=== PATIENT | male | born 1955 | race Caucasian/White ===

== ENCOUNTER 2021-07-20 04:08 | Inpatient (IN) | payer OTHER ==
[~2021-07-20] VITALS: Ht 177.8 cm; Wt 61.5 kg
[~2021-07-20 04:08] MED LIST: ATENOLOL25 MG PO; FINA5; Flecainide Acet50 MG; HYDROCODONE-AC1 EAC7 PO; Hytrin2 MG PO; JANTOVEN2.5 M2 PO; NEURONTIN300 MG PO; Norco 5-325 Ta1 EACH PO; ONDA4 PO; PANTOPRAZOLE SO40 M2 PO; PRAVASTATIN SOD20 MG PO; SOMA350 M4 PO
[2021-07-20 05:23] LABS: BASOPHILS ABSOLUTE AUTO 0.04 K/mm3 (0.00-0.23); BASOPHILS PERCENT AUTO 0 % (0-2); EOSINOPHILS ABSOLUTE AUTO 0.14 K/mm3 (0.00-0.68); EOSINOPHILS PERCENT AUTO 2 % (0-6); Hemoglobin 10.1 g/dL (13.5-17.5); IMMATURE GRAN ABSOLUTE AUTO 0.03 K/mm3 (0.00-0.10); IMMATURE GRAN PERCENT AUTO 0 % (0-1); LYMPHOCYTES ABSOLUTE AUTO 1.26 K/mm3 (0.84-5.20); LYMPHOCYTES PERCENT AUTO 14 % (21-46); MONOCYTES ABSOLUTE AUTO 0.82 K/mm3 (0.16-1.47); MONOCYTES PERCENT AUTO 9 % (4-13); Mean Corpuscular HGB 27.8 pg (26.0-34.0); Mean Corpuscular HGB Conc 31.6 g/dL (31.5-36.5); Mean Corpuscular Volume 88 fL (80-100); Mean Platelet Volume 8.8 fL (9.1-12.4); NEUTROPHILS ABSOLUTE AUTO 6.86 K/mm3 (1.96-9.15); NEUTROPHILS PERCENT AUTO 75 % (41-73); Platelet Count 260 K/mm3 (150-400); RDW Coefficient Variation 18.5 % (11.7-14.2); RDW Standard Deviation 59.9 fL (35.1-46.3); Red Blood Cell Count 3.63 M/mm3 (4.30-5.90); White Blood Cell Count 9.15 K/mm3 (4.00-11.30)
[2021-07-20] MEDS ORDERED: AMOCLA875 PO (06:02)
[2021-07-20 07:41] LABS: International Normalized Ratio 2.55; Prothrombin Time Results 25.2 Sec (9.7-11.5)
[2021-07-20 08:51] LABS: Alanine Aminotransfer (ALT/SGP 22 U/L (12-78); Albumin, Blood 3.1 g/dL (3.4-5.0); Albumin/Globulin Ratio 1.2 (0.8-1.8); Alk Phos 51 U/L (50-136); Anion Gap 5 mmol/L (6-16); Aspartate Aminotrans (AST/SGOT 22 U/L (12-37); Bilirubin, Total 0.2 mg/dL (0.1-1.0); Blood Urea Nitrogen 26 mg/dL (8-24); Bun/Creatinine Ratio 50.7 (12.0-20.0); CO2, Blood 23 mmol/L (21-32); Calcium, Blood 7.5 mg/dL (8.5-10.1); Chloride, Blood 114 mmol/L (98-108); Creatinine, Blood 0.51 mg/dL (0.60-1.20); Globulin, Blood 2.6 g/dL (2.2-4.0); Glomerular Filtration Rate >60 (60-); Glucose, Blood 151 mg/dL (70-99); Potassium, Blood 3.9 mmol/L (3.5-5.5); Sodium, Blood 142 mmol/L (136-145); Total Protein, Blood 5.7 g/dL (6.4-8.2)
--- NOTE | 2021-07-20 10:00 | NUR ---
PT ARRIVED FROM ER, CLOTHING REMOVED. RIB BUILDER & I HAD HUNG #3 OF FFP, THEN STRED #4 ON ARRIVAL FROM ER. AFTER PT WENT TO OR, RN CALLED TO LET PT'S KNOW AN UPDATE OF GOING TO THE OR. RAPID COVID DONE IN UNIT, NEG. HAD 18G ON L FA, 20G IN R WRIST.
--- NOTE | 2021-07-20 12:32 | NUR ---
ARRIVAL TO UNIT PT ARRIVED TO UNIT POST SURGICAL PROCEDURE FOR NOSE BLEED, RN KAUR [place] HANDED PATIENT OFF TO THIS STUDENT. PT ALERT AND ORIENTED X4. NOSE HAS DRIED BLOOD WITH NO DAVID BLOOD NOTED. PT STATES HE IS SLEEPY, VITALS TAKEN WITH TEMP OF 101.3 NOTED. PT WRAPPED IN WARM BLANKETS AND HAD BEAR HUGGER DURING PROCEDURE. WILL REASSESS. CALL LIGHT IN REACH, DENIES PAIN, ICE WATER GIVEN.
[2021-07-20 13:40] LABS: Hematocrit 18.7 % (37.0-53.0)
[2021-07-20 13:52] LABS: International Normalized Ratio 1.65
[2021-07-20 14:00] LABS: Hemoglobin 5.9 g/dL (13.5-17.5)
[2021-07-20 14:02] LABS: Prothrombin Time Results 16.8 Sec (9.7-11.5)
--- NOTE | 2021-07-20 14:04 | NUR ---
PT APPEARS PALE AND REPORTS FEELING WEAK AND SICK. HE REMAINS ORIENTED X4 AND ANSWERS QUESTIONS APPROPRIATLY. LAB CALLED WITH CRITICAL VALUE WHILE CALLING HOSPITALIST. HGB OF 5.9. NOTIFIED HOSPITALIST BLANHCE, ORDERS RECIEVED FOR 2 UNITCS PRBC TRANSFUSE NOW.
[2021-07-20 14:26] LABS: Source, Urine Clean Catch
[2021-07-20 14:41] LABS: Influenza A, PCR NEGATIVE (NEGATIVE); Influenza B, PCR NEGATIVE (NEGATIVE); Resp Syncytial Virus, PCR NEGATIVE (NEGATIVE); SARS-Cov-2 (COVID-19) PCR, MMC NEGATIVE (NEGATIVE)
--- NOTE | 2021-07-20 14:49 | NUR ---
TRANFUSION TRANSFUSION STARTED AT 1445. PT IS LAYING IN BED, REMAINS PALE AND REPORTS FEELING WEAK. HE ASKS FOR ICE WATER. PER HOSPITALIST BLANCHE IF NO SIGNS OF TRANSFUSION REACTION AFTER 15 MINUTES HE WANTS THE UNIT RAN OVER 1 HOUR. WILL ADMINISTER BLOOD AND CONTINUE TO MONITOR FOR ADVERSE EFFECTS.
[2021-07-20 14:51] LABS: Bilirubin, Urine Neg (Neg); Blood, Urine 5+ (Neg); Glucose Qualitative, Urine Neg (Neg); Ketones, Urine 2+ (Neg); Leukocyte Esterase, Urine 1+ (Neg); Nitrite, Urine Neg (Neg); Protein, Urine 2+ (Neg); Specific Gravity, Urine 1.005 (1.003-1.022); Urobilinogen, Urine NORM (Normal)
[2021-07-20 15:00] LABS: Appearance, Urine Hazy (Clear); Color, Urine Pale Yellow (P-Yellow)
[2021-07-20 15:01] LABS: Red Blood Cells, Urine 25-50 /hpf (0-2)
[2021-07-20 15:02] LABS: Bacteria Rare /hpf; Squamous Epithelial Cells Rare /hpf (Few)
--- NOTE | 2021-07-20 15:04 | NUR ---
pt tolerating first 15 minutes of transfusion well, denies any new pain or shortness of breath. rate increased per provider. pt has call light in reach, he is aware of need to call if any signs of transfusion reaction begin. currently resting in bed, continues to complain of weakness and feeling "bad"
--- NOTE | 2021-07-20 16:44 | NUR ---
pt tolerated first unit of prbc, he appears more alert and engaged with staff. he reports feeling better at this time. he is less pale than before.
--- NOTE | 2021-07-20 18:37 | NUR ---
SHIFT SUMMARY PT CURRENTLY RECIEVING SECOND UNIT PRBC, NO S/S OF TRANSFUSION REACTION. TOLERATING WELL. PT REPORTS FEELING BETTER SINCE START OF TRANSFUSION. CHEST X RAY FOR PNEUMOTHORAX DONE. PT DENIES SHORTNESS OF BREATH, LUNG SOUNDS COARSE, WHEEZY AND HAS A RUB WHEN LAYING DOWN. CLEAR WHEN SITTING STRAIGHT UP. ABLE TO TRANSFER TO BSC WITH MINIMAL ASSIST. SMALL AMOUNT DRIED BLOOD AROUND NOSE, OTHERWISE SKIN UNREMARKABLE. TOLERATING PO WELL, MEDICATED FOR PAIN IN BACK PER EMAR.
[2021-07-20 19:56] LABS: Hematocrit 24.9 % (37.0-53.0); Hemoglobin 8.1 g/dL (13.5-17.5)
[2021-07-21 04:02] LABS: Hematocrit 23.7 % (37.0-53.0); Hemoglobin 7.5 g/dL (13.5-17.5)
[2021-07-21 04:16] LABS: International Normalized Ratio 1.89
--- NOTE | 2021-07-21 05:33 | NUR ---
PATIENTS HEART RATE INCREASED IN THE 150'S. WHEEZING THROUGHOUT LUNGS. PATIENT COUGHING UP SMALL AMOUNTS OF BLOOD TINGED SPUTUMN. CURRENTLY ON HEPARIN DRIP. HGB DECREASE FROM 8.[address] GOODWIN, RECEIVED ORDERS FOR METOPROLOL SMG IV, LASIX 40MG IV, STOP FLUIDS. PER TELE PATIENT SINUS TACH. MEDICATED FOR BACK PAIN, PATIENT STATES HE HAS CHRONIC BACK PAIN. CURRENTLY RESTING, SAFETY MAINTAINED.
[2021-07-21 09:43] LABS: Hemoglobin 6.4 g/dL (13.5-17.5)
[2021-07-21 09:44] LABS: Mean Platelet Volume 9.4 fL (9.1-12.4); Platelet Count 162 K/mm3 (150-400)
--- NOTE | 2021-07-21 10:53 | NUR ---
0930 HGB DRAW IS 6.4, DR. WISEMAN NOTIFIED, SEE NEW ORDERS FOR 2 UNITS RBC'S. NO CHANGE IN PT STATUS
--- NOTE | 2021-07-21 11:07 | NUR ---
07/21/21 1107 Joe Yoo 30 cc of 1:1000 lido with epi on cottonoids for topical application
--- NOTE | 2021-07-21 12:54 | NUR ---
HEPARIN DRIP STOPPED AT THIS TIME PER ORDER
--- NOTE | 2021-07-21 15:16 | NUR ---
1ST UNIT OF RBC'S NOW TRANSFUSED. PT TOLERATED WELL, PLAN TO START 2ND SOON.
--- NOTE | 2021-07-21 17:03 | NUR ---
SUMMARY: NO ACUTE CHANGE TODAY. VSS, TELE WNL, A/O, PT USING CALL LIGHT. SBA WHEN AMBULATING. NO BLEEDING NOTED TODAY, NO EMESIS. 2 UNIT OF BLOOD TRANSFUSING NOW, LUNGS ARE CLEAR. NO COMPLAINT OF SOB. H&H TO BE DRAWN AFTER TRANSFUSING. PT HAS DENIED DIZZINESS. MEDICATED FOR CHRONIC BACK PAIN WITH 1 NARCO Q6. PT TO RECEIVED PO WARFARIN TONIGHT. NO SAFETY CONCERNS, WILL CTM AND REPORT TO JULES HOANG.
[2021-07-21 20:55] LABS: Hematocrit 24.7 % (37.0-53.0); Hemoglobin 8.1 g/dL (13.5-17.5)
[2021-07-22 01:12] LABS: Hematocrit 23.6 % (37.0-53.0); Hemoglobin 7.8 g/dL (13.5-17.5)
[2021-07-22 01:26] LABS: International Normalized Ratio 2.28; Prothrombin Time Results 22.7 Sec (9.7-11.5)
--- NOTE | 2021-07-22 06:41 | NUR ---
SHIFT SUMMARY: PT IN BED AAXO4. BLOOD PRODUCT FINISH FLUSH GIVEN. VS WNL WITH NO SIGNS OF DISTRESS NOTED. KILN LOADER IN PLACE MACHINING ASSOCIATE REPORTS SR IN THE 80'S. SOME PRODUCTIVE COUGH PRESENT WITH YELLOW SECREATIONS. PULSE OX IN PLACE O2 SAT @96%. UP TO BATHROOM SOFT STOOL PRESENT. COMPLAINS OF BACK PAIN MEDICATED PER EMAR.
[2021-07-22 07:40] LABS: Hematocrit 23.4 % (37.0-53.0); Hemoglobin 7.7 g/dL (13.5-17.5)
--- NOTE | 2021-07-22 13:09 | NUR ---
PT. DISCHARGED AT 1300 TO HOME. DC INSTRUCTIONS EXPLAINED, PT. VERBALIZE UNDERSTANDING. NASAL DECONGESTANT ORDERED, INR PRESCRIPTION SENT. PERSONAL BELONGINGS AND DC INSTRUCTIONS SENT WITH PT. DENIES PAIN, VOICES NO COMPLAINTS. W/C TO EXIT.
== END 2021-07-22 13:05 | disposition home or self-care (01) | DRG 151 ==
LOC: ER 04:08 → SURS 04:09
PROVIDERS: Emergency Medicine; Internal Medicine; Nurse Practitioner Acute Care; Pharmacist; Student in an Organized Health Care Education/Training Program; ADMIT Otolaryngology
PROC: 30233N1 Transfusion of Nonautologous Red Blood Cells into Peripheral Vein, Percutaneous Approach (ICD-10-PCS; principal; 2021-07-21)
PROC: 30233K1 Transfusion of Nonautologous Frozen Plasma into Peripheral Vein, Percutaneous Approach (ICD-10-PCS; 2021-07-21)
PROC: 093K8ZZ Control Bleeding in Nasal Mucosa and Soft Tissue, Via Natural or Artificial Opening Endoscopic (ICD-10-PCS; 2021-07-21)
PROC: 2Y41X5Z Packing of Nasal Region using Packing Material (ICD-10-PCS; 2021-07-21)
DX: R04.0 Epistaxis (principal); I48.20 Chronic atrial fibrillation, unspecified; D62 Acute posthemorrhagic anemia; R64 Cachexia; Z68.1 Body mass index [BMI] 19.9 or less, adult; Z53.29 Procedure and treatment not carried out because of patient's decision for other reasons; Z20.822 Contact with and (suspected) exposure to COVID-19; F17.200 Nicotine dependence, unspecified, uncomplicated; T45.515A Adverse effect of anticoagulants, initial encounter; J44.9 Chronic obstructive pulmonary disease, unspecified; N40.0 Benign prostatic hyperplasia without lower urinary tract symptoms; I48.0 Paroxysmal atrial fibrillation; Z95.2 Presence of prosthetic heart valve; Z79.01 Long term (current) use of anticoagulants; Z79.899 Other long term (current) drug therapy
CPT/HCPCS: 0241U; 30903; 36415; 36430; 71045; 80053; 81001; 83880; 85014; 85018; 85025; 85049; 85610; 85730; 86850; 86900; 86901; 86923; 87086; 93005; 93010; 94640; 94762; 96372; 96374-59; 96375; 96375-59; 96376; 99285-25; A9270; G0378; J0171; J0780; J1100; J1644; J1940; J2250; J2370; J2405; J2550; J2704; J2765; J3010; J7030; J7050; J7120; P9016; P9059

== ENCOUNTER 2021-09-09 08:23 | Emergency (ER) | payer OTHER ==
[~2021-09-09] VITALS: Ht 177.8 cm; Wt 59.0 kg
[~2021-09-09 08:23] MED LIST changes: +AMOCLA875 PO
[2021-09-09 09:43] LABS: BASOPHILS ABSOLUTE AUTO 0.04 K/mm3 (0.00-0.23); BASOPHILS PERCENT AUTO 1 % (0-2); EOSINOPHILS PERCENT AUTO 2 % (0-6); Hematocrit 37.1 % (37.0-53.0); Hemoglobin 11.6 g/dL (13.5-17.5); IMMATURE GRAN ABSOLUTE AUTO 0.02 K/mm3 (0.00-0.10); IMMATURE GRAN PERCENT AUTO 0 % (0-1); LYMPHOCYTES ABSOLUTE AUTO 0.71 K/mm3 (0.84-5.20); LYMPHOCYTES PERCENT AUTO 11 % (21-46); MONOCYTES ABSOLUTE AUTO 0.56 K/mm3 (0.16-1.47); MONOCYTES PERCENT AUTO 8 % (4-13); Mean Corpuscular HGB 28.5 pg (26.0-34.0); Mean Corpuscular HGB Conc 31.3 g/dL (31.5-36.5); Mean Corpuscular Volume 91 fL (80-100); Mean Platelet Volume 9.4 fL (9.1-12.4); NEUTROPHILS ABSOLUTE AUTO 5.23 K/mm3 (1.96-9.15); NEUTROPHILS PERCENT AUTO 79 % (41-73); Platelet Count 259 K/mm3 (150-400); RDW Coefficient Variation 18.8 % (11.7-14.2); Red Blood Cell Count 4.07 M/mm3 (4.30-5.90); White Blood Cell Count 6.66 K/mm3 (4.00-11.30)
[2021-09-09 09:57] LABS: International Normalized Ratio 2.25; Prothrombin Time Results 22.4 Sec (9.7-11.5)
== END 2021-09-09 12:53 | disposition home or self-care (01) ==
LOC: ER 08:23
PROVIDERS: Emergency Medicine
DX: R04.0 Epistaxis (principal); I48.0 Paroxysmal atrial fibrillation; J44.9 Chronic obstructive pulmonary disease, unspecified; F17.200 Nicotine dependence, unspecified, uncomplicated; Z79.899 Other long term (current) drug therapy; Z79.891 Long term (current) use of opiate analgesic; Z79.01 Long term (current) use of anticoagulants
CPT/HCPCS: 30901; 36415; 85025; 85610; 99283-25; A9270

== ENCOUNTER 2021-09-10 16:09 | Emergency (ER) | payer OTHER ==
[~2021-09-10] VITALS: Ht 177.8 cm; Wt 59.0 kg
[2021-09-10 18:53] LABS: International Normalized Ratio 1.71; Prothrombin Time Results 17.3 Sec (9.7-11.5)
[2021-09-10 19:00] LABS: BASOPHILS ABSOLUTE AUTO 0.03 K/mm3 (0.00-0.23); BASOPHILS PERCENT AUTO 0 % (0-2); EOSINOPHILS ABSOLUTE AUTO 0.03 K/mm3 (0.00-0.68); EOSINOPHILS PERCENT AUTO 0 % (0-6); Hematocrit 34.8 % (37.0-53.0); Hemoglobin 10.9 g/dL (13.5-17.5); IMMATURE GRAN ABSOLUTE AUTO 0.05 K/mm3 (0.00-0.10); IMMATURE GRAN PERCENT AUTO 0 % (0-1); LYMPHOCYTES ABSOLUTE AUTO 0.53 K/mm3 (0.84-5.20); LYMPHOCYTES PERCENT AUTO 5 % (21-46); MONOCYTES ABSOLUTE AUTO 0.72 K/mm3 (0.16-1.47); MONOCYTES PERCENT AUTO 6 % (4-13); Mean Corpuscular HGB 28.8 pg (26.0-34.0); Mean Corpuscular HGB Conc 31.3 g/dL (31.5-36.5); Mean Corpuscular Volume 92 fL (80-100); Mean Platelet Volume 9.2 fL (9.1-12.4); NEUTROPHILS ABSOLUTE AUTO 10.34 K/mm3 (1.96-9.15); NEUTROPHILS PERCENT AUTO 88 % (41-73); Platelet Count 252 K/mm3 (150-400); RDW Coefficient Variation 18.9 % (11.7-14.2); RDW Standard Deviation 63.7 fL (35.1-46.3); Red Blood Cell Count 3.79 M/mm3 (4.30-5.90)
== END 2021-09-10 19:26 | disposition home or self-care (01) ==
LOC: ER 16:09
PROVIDERS: Student in an Organized Health Care Education/Training Program
DX: R04.0 Epistaxis (principal); Z79.899 Other long term (current) drug therapy; Z79.891 Long term (current) use of opiate analgesic; Z79.01 Long term (current) use of anticoagulants; F17.210 Nicotine dependence, cigarettes, uncomplicated
CPT/HCPCS: 30903; 36415; 85025; 85610; 99283-25; A9270

== ENCOUNTER 2023-01-23 11:02 | Inpatient (IN) | payer OTHER ==
[~2023-01-23] VITALS: Ht 175.3 cm; Wt 53.2 kg
[2023-01-23] VITALS (8 sets, daily range): BP systolic 142–174; BP diastolic 82–111
[2023-01-23 11:45] LABS: BASOPHILS ABSOLUTE AUTO 0.04 K/mm3 (0.00-0.23); BASOPHILS PERCENT AUTO 0 % (0-2); EOSINOPHILS ABSOLUTE AUTO 0.01 K/mm3 (0.00-0.68); EOSINOPHILS PERCENT AUTO 0 % (0-6); Hematocrit 33.1 % (37.0-53.0); Hemoglobin 10.9 g/dL (13.5-17.5); IMMATURE GRAN PERCENT AUTO 1 % (0-1); LYMPHOCYTES ABSOLUTE AUTO 0.41 K/mm3 (0.84-5.20); LYMPHOCYTES PERCENT AUTO 2 % (21-46); MONOCYTES ABSOLUTE AUTO 1.63 K/mm3 (0.16-1.47); MONOCYTES PERCENT AUTO 8 % (4-13); Mean Corpuscular HGB 27.7 pg (26.0-34.0); Mean Corpuscular HGB Conc 32.9 g/dL (31.5-36.5); Mean Corpuscular Volume 84 fL (80-100); NEUTROPHILS PERCENT AUTO 88 % (41-73); RDW Coefficient Variation 19.9 % (11.7-14.2); RDW Standard Deviation 60.7 fL (35.1-46.3); Red Blood Cell Count 3.94 M/mm3 (4.30-5.90); White Blood Cell Count 19.79 K/mm3 (4.00-11.30)
[2023-01-23 11:50] LABS: Calcium, Ionized (POC) 1.15 mmol/L (1.10-1.46); Chloride (POC) 105 mmol/L (98-108); Creatinine (POC) 0.5 mg/dL (0.8-1.3); Glucose (ISTAT POC) 157 mg/dL (70-99); Hemoglobin (POC) 12.2 g/dL (13.5-17.5); Potassium (POC) 3.6 mmol/L (3.5-5.5); Sodium (POC) 138 mmol/L (135-148); Total CO2 (POC) 20 mmol/L (21-32)
[2023-01-23 12:07] LABS: BASOPHILS PERCENT MAN 0 % (0-2); EOSINOPHILS PERCENT MAN 0 % (0-6); LYMPHOCYTES ABSOLUTE MAN 0.59 K/mm3 (0.84-5.20); LYMPHOCYTES PERCENT MAN 3 % (21-46); MONOCYTES ABSOLUTE MAN 0.98 K/mm3 (0.16-1.47); MONOCYTES PERCENT MAN 5 % (4-13); SEG NEUTROPHILS PERCENT MAN 92 % (41-73); TOTAL CELLS COUNTED 100
[2023-01-23 12:13] LABS: Platelet Count 248 K/mm3 (150-400)
[2023-01-23 12:13] LABS: International Normalized Ratio 2.27; Prothrombin Time Results 22.8 Sec (9.7-11.5)
[2023-01-23 12:19] LABS: Albumin, Blood 3.9 g/dL (3.4-5.0); Albumin/Globulin Ratio 1.2 (0.8-1.8); Bilirubin, Total 0.8 mg/dL (0.1-1.0); Bun/Creatinine Ratio 29.7 (12.0-20.0); Creatinine, Blood 0.57 mg/dL (0.60-1.20); Globulin, Blood 3.3 g/dL (2.2-4.0); Total Protein, Blood 7.2 g/dL (6.4-8.2)
[2023-01-23 13:06] LABS: Source, Urine Clean Catch
[2023-01-23 13:25] LABS: Potassium, Blood 3.8 mmol/L (3.5-5.5)
[2023-01-23 13:35] LABS: Appearance, Urine Bloody (Clear); Bilirubin, Urine Neg (Neg); Blood, Urine 5+ (Neg); Color, Urine Brown (P-Yellow); Glucose Qualitative, Urine 1+ (Neg); Ketones, Urine 2+ (Neg); Leukocyte Esterase, Urine 1+ (Neg); Nitrite, Urine Pos (Neg); Protein, Urine 3+ (Neg); Urobilinogen, Urine NORM (Normal)
[2023-01-23 13:50] LABS: Red Blood Cells, Urine TNTC /hpf (0-2)
[2023-01-23 13:53] LABS: Bacteria Many /hpf; Calcium Oxalate Crystals Few /hpf; Hyaline Casts 0-2 /lpf (0-2); Squamous Epithelial Cells Rare /hpf (Few)
[2023-01-23 13:56] LABS: U Amphetamine Screen Not Detected; U Barbituate Screen Not Detected; U Benzodiazapine Screen Not Detected; U Buprenorphine Screen Not Detected; U Cannabinoids Screen DETECTED; U Cocaine Screen Not Detected; U Methadone Screen Not Detected; U Methamphetamine Screen Not Detected; U Opiates Screen Not Detected; U Oxycodone Screen DETECTED; U Phencyclidine Screen Not Detected; U Propoxyphene Screen Not Detected
--- NOTE | 2023-01-23 19:39 | NUR ---
PT UPDATE PT ARRIVED TO PCU7 FROM ER APPROX 1720. PT SOMNELENT, ONLY RESPONSIVE TO PHYSICAL STIMULI. HR 110'S-130'S, BP 174/111. SPO2 >95% ON RA, DYSPNEA WITH MOVEMENT. RR 28. BILATERAL IV'S SALINE LOCKED. CONDOM CATH PLACED DRAINING TEA COLORED URINE. APPROX 0710 PT WITH SPO2 77%, SATS IMPROVED WITHIN 30 SECONDS. RECTAL TEMP PROBE PLACED, TEMP 101.4. ICE BAGS APPLIED TO PT. BILATERAL NYSTAGMUS NOTED, PUPILS EQUAL AND RESPONSIVE TO LIGHT. PT RESPONSIVE TO STERNAL RUB, UNABLE TO FOLLOW ANY COMMANDS. CALL PLACED TO MD HARGROVE. MD HARGROVE WITH UPDATED ORDERS. STAT CT COMPLETED. BEDSIDE REPORT GIVE TO ONCOMING RN.
[2023-01-23 19:56] LABS: PCO2 Arterial 24.3 mmHg (35-45); PO2 Arterial 67.3 mmHg (80-100)
[2023-01-23 20:56] LABS: Hematocrit 33.8 % (37.0-53.0); Hemoglobin 11.2 g/dL (13.5-17.5)
[2023-01-23 21:09] LABS: C-REACTIVE PROTEIN, EXT RANGE 4.49 mg/dL (0.000-0.300)
[2023-01-23 22:24] LABS: Source, Urine Clean Catch
--- NOTE | 2023-01-23 22:25 | NUR ---
PATIENT UPDATE/ASSUMPTION OF CARE THIS RN ASSUMED CARE OF PATIENT AT 1930. PT BACK FROM HEAD CT WITH PRIOR RN. BEDSIDE REPORT TAKEN. PREVIOUS RN UPDATED OF PT VIA PHONE. PT CONTINUES TO BE SOMNOLENT AND NOT ANSWERING QUESTIONS OR FOLLOWING COMMANDS. IT WAS REPORTED BY PREVIOUS RN OF POSSIBLE SEIZURE-LIKE ACTIVITY PRIOR TO PT DEVELOPING NYSTAGMUS. AFTER THIS RN TOOK OVER CARE PT BECAME MORE AWAKE AND BEGAN PULLING AT LINES SO SOFT BILATERAL WRIST RESTRAINTS WERE PLACED BACK ON PT. BLADDER SCAN SHOWING >800MLS OF URINE IN BLADDER. CALL PLACED TO PROVIDER AND ORDER RECIEVED FOR HERNANDEZ CATHETER. URINE CONTINUES TO BE RED. ST ON MONITOR WITH HR 120-130'S. SBP 140-150'S. RECTAL PROBE PLACED D/T TEMP OF >101.0. CURRENTLY DOWN TO 100.4 AFTER RECTAL TYLENOL. PLACED ON 3L VIA NC D/T ABG SHOWING HYPOXIA. PT CONTINUES TO HAVE RESPIRATIONS OF 26-30. PUPILS REACTIVE TO LIGHT; NO NYSTAGMUS NOTED AT THIS TIME. NOT FOLLOWING COMMANDS. HYPOACTIVE BOWEL SOUNDS NOTED. PPP. PLAN TO TRANSFER TO ICU FOR PRECEDEX AND CT TO BE REDONE. THIS RN WILL REPORT TO PRINTED CIRCUIT DESIGNERVIKTOR ASH. BED IN LOWEST POSITION AND CALL LIGHT WITHIN REACH
[2023-01-23 22:27] LABS: Appearance, Urine Cloudy (Clear); Bilirubin, Urine Neg (Neg); Blood, Urine 5+ (Neg); Color, Urine Brown (P-Yellow); Glucose Qualitative, Urine Neg (Neg); Ketones, Urine 1+ (Neg); Leukocyte Esterase, Urine 1+ (Neg); Nitrite, Urine Neg (Neg); Protein, Urine 3+ (Neg); Specific Gravity, Urine 1.015 (1.003-1.022); Urobilinogen, Urine NORM (Normal)
[2023-01-23 23:01] LABS: Bacteria Mod /hpf; Red Blood Cells, Urine 50-100 /hpf (0-2); Squamous Epithelial Cells Not Seen /hpf (Few); White Blood Cells, Urine 0-2 /hpf (0-5)
--- NOTE | 2023-01-23 23:34 | NUR ---
PT ARRIVES TO ICU 11 FROM PCU 7. PT CONFUSED, AND IS RESISTANT TO CARE. SOFT WRIST RESTRAINTS IN PLACE TO KEEP PT FROM PULLING AT LINES OR TUBES. PT NOT REDIRECTABLE. DOES NOT FOLLOW ANY COMMANDS. PUPILS SANDRA. STARTED PRECEDEX AT 0.2 MCG'S/KG. HAVE SINCE INCREASED TO 0.4 MCG'S. PT ON HEPARIN DRIP. ORDERS VERIFIED WITH VIKTOR SUAZO. HERNANDEZ CATHETER WITH HEMATURIA. UPON TRANSFER 900 ML HAD BEEN EMPTIED. RESPIRATORY PCR WITH COVID TEST DONE SECONDARY TO FEVER, RESPIRATORY CONGESTION, AND AMS. PENDING RESULTS. WILL PLACE PT IN RESPIRATORY ISOLATION UNTIL RESULTS RETURN.
[2023-01-24] VITALS (47 sets, daily range): BP systolic 91–174; BP diastolic 69–119
[2023-01-24 00:06] LABS: SARS-Cov-2 (COVID-19) PCR, MMC NEGATIVE (NEGATIVE)
--- NOTE | 2023-01-24 01:18 | NUR ---
PT GOES TO CT AND HAS RETURNED. DR BRUNER CONTACTED TO SEE RESULTS OF CT.
[2023-01-24 01:32] LABS: Anti-Xa UFH, PHA Monitoring 0.23 IU/mL
--- NOTE | 2023-01-24 02:37 | NUR ---
REPORT CALLED TO VIKTOR BERNARD. ALLOWED FOR QUESTIONS. PT TO BE TRANSFERRED BACK TO ICU 7
--- NOTE | 2023-01-24 03:31 | NUR ---
PATIENT UPDATE PATIENT TRANSFERRED BACK TO PCU 7 FROM ICU AT 0245. THIS RN NOTES WORSENING LUNG SOUNDS SINCE BEGINNING OF SHIFT. NS INFUSING AT 200MLS/HR. COARSE CRACKLES HEARD T/O. CALL PLACED TO MD BRUNER, ORDER TO STOP FLUIDS FOR NOW AND GET REPEAT CXR NOW. OTHERWISE PT WITH SR/ST ON MONITOR, HR 90-100'S AT REST. INCREASES TO 120'S WITH ACTIVITY. BP STABLE. TEMP 99.4 AT THIS TIME. PT NEURO NOTED TO HAVE IMPROVED. PT CONTINUES TO PULL AT LINES BUT IS NOW FOLLOWING SIMPLE COMMANDS AND IS NODDING YES/NO TO QUESTIONS. BILATERAL WRIST RESTRAINTS REMAIN IN PLACE FOR LINE SAFETY. HERNANDEZ CATHETER DRAINING TO GRAVITY; CONTINUES TO BE RED IN COLOR. BED IN LOWEST POSITION AND CALL LIGHT WITHIN REACH.
--- NOTE | 2023-01-24 05:35 | NUR ---
SHIFT SUMMARY SEE PREVIOUS NOTES REGARDING UPDATES AND CHANGES IN PT CONDITION. SINCE ARRIVAL BACK TO PCU PT HAS BEEN MORE ALERT, AND IS ABLE TO RESPOND VERBALLY TO QUESTIONS. PT HAS MUMBLED SPEECH BUT IS STATING SIMPLE PHRASES LIKE "I WANT TO GO BACK TO SLEEP", "I'M NOT IN PAIN". PT REMAINS CONFUSED AND PULLS AT LINES. PT ORIENTED TO SELF BUT DID NOT KNOW WHERE HE WAS OR WHAT DAY IT WAS. PT CONTINUES TO BE IN BILATERAL WRIST RESTRAINTS D/T CONFUSION AND PULLING AT LINES. ST WITH HR 90-100'S AT THIS TIME. ON 3L VIA NC WITH SPO2 >92%; RT ROSS TO BEDSIDE TO SUCTION PATIENT TO ASSIST IN CLEARING TAY SECRETIONS. BP STABLE WITH SBP 140'S AT THIS TIME. RECTAL PROBE REMAINS IN PLACE WITH TEMP 99.9 AT THIS TIME. REPOSITIONING Q2HRS. BED IN LOWEST POSITION AND CALL LIGHT WITHIN REACH. THIS RN WILL REPORT TO ONCOMING RN.
[2023-01-24 06:19] LABS: BASOPHILS ABSOLUTE AUTO 0.01 K/mm3 (0.00-0.23); BASOPHILS PERCENT AUTO 0 % (0-2); EOSINOPHILS PERCENT AUTO 0 % (0-6); Hematocrit 28.3 % (37.0-53.0); Hemoglobin 9.4 g/dL (13.5-17.5); IMMATURE GRAN ABSOLUTE AUTO 0.07 K/mm3 (0.00-0.10); IMMATURE GRAN PERCENT AUTO 1 % (0-1); LYMPHOCYTES ABSOLUTE AUTO 0.36 K/mm3 (0.84-5.20); LYMPHOCYTES PERCENT AUTO 3 % (21-46); MONOCYTES ABSOLUTE AUTO 1.19 K/mm3 (0.16-1.47); MONOCYTES PERCENT AUTO 8 % (4-13); Mean Corpuscular HGB 28.6 pg (26.0-34.0); Mean Corpuscular HGB Conc 33.2 g/dL (31.5-36.5); Mean Corpuscular Volume 86 fL (80-100); Mean Platelet Volume 9.6 fL (9.1-12.4); NEUTROPHILS ABSOLUTE AUTO 12.84 K/mm3 (1.96-9.15); NEUTROPHILS PERCENT AUTO 89 % (41-73); Platelet Count 208 K/mm3 (150-400); RDW Standard Deviation 65.4 fL (35.1-46.3); Red Blood Cell Count 3.29 M/mm3 (4.30-5.90); White Blood Cell Count 14.47 K/mm3 (4.00-11.30)
--- NOTE | 2023-01-24 07:28 | NUR ---
ASSUMPTION OF CARE ASSUMED CARE OF PT APPROX 0715. PT AWAKE IN BED, NOTICEABLY DYSPNEIC. PT ABLE TO NOD HEAD TO ANSWER SOME QUESTIONS. UNABLE TO FOLLOW MOST COMMANDS. RR 32. SPO2 >92% ON 3L NC, PT POSITIONED IN HIGH FOWLERS. HR 110'S-120'S, BP STABLE. HERNANDEZ CATHETER IN PLACE DRAINING DARK RED URINE TO GRAVITY. PT ATTEMPTING TO PULL HERNANDEZ CATH, REPOSITIONED WITH PILLOWS. SOFT WRIST RESTRAINTS IN PLACE, PULSES PALPABLE. HEPARIN GTT INFUSING PER EMAR. CALL LIGHT WITHIN PT'S REACH, BED ALARM ON.
--- NOTE | 2023-01-24 08:16 | NUR ---
PT UPDATE SOFT WRIST RESTRAINTS REMOVED AT 0815. RT TO BEDSIDE. BIPAP PLACED, 1:1 SITTER PRESENT IN PT ROOM.
[2023-01-24 08:23] LABS: Albumin, Blood 3.2 g/dL (3.4-5.0); Bilirubin, Total 0.4 mg/dL (0.1-1.0); Bun/Creatinine Ratio 45.3 (12.0-20.0); Calcium, Blood 8.3 mg/dL (8.5-10.1); Creatinine, Blood 0.57 mg/dL (0.60-1.20); Globulin, Blood 3.1 g/dL (2.2-4.0); Potassium, Blood 3.6 mmol/L (3.5-5.5); Total Protein, Blood 6.3 g/dL (6.4-8.2)
[2023-01-24] MEDS ORDERED: OXYC5 PO (09:17)
[2023-01-24] MEDS ORDERED: Ventolin/Prove6.7 GM INH (09:17)
[2023-01-24] MEDS ORDERED: TIOT18 INH (09:18)
[2023-01-24] MEDS ORDERED: PANT40 PO (09:18)
--- NOTE | 2023-01-24 09:31 | NUR ---
PT TRANSFER: PT TRANSFERRED TO ICU11 AT 0845. REPORT GIVEN TO AIMEE HOANG. PT TRANSPORTED ON BIPAP.
--- NOTE | 2023-01-24 11:09 | NUR ---
TRANSFER TO ICU PT ARRIVES TO ICU AT 0845 FOR INCREASED WOB. REPORT FROM SEDRICK HOANG. PT ARRIVES ON BIPAP 05/07/%. RR 25-35. ACCESSORY MUSCLES USED, LABORED BREATHING. PT ANXIOUS AND AGITATED. PULLING ON LINES. SOFT WRIST RESTRAINTS TO PROTECT LINES AND TUBES. PT DIFFICULT TO UNDERSTAND. MOANING. ABLE TO UNDERSTAND OCCASIONAL NEEDS (BACK PAIN, REQUESTS FOR WATER). PT DIFFICULT TO REDIRECT. DOES NOT FOLLOW COMMANDS. CURRENTLY ON NRB AT 15L. LUNGS COARSE, AUDIBLE SECRETIONS, ENCOURAGED COUGH, WEAK. UNABLE TO CLEAR SECRETIONS. PLAN FOR NT SUCTIONING. ST ON MONITOR, RATE 100-140'S. BP STABLE. HEPARIN GTT INFUSING. STARTED PRECEDEX GTT FOR AGITATION AND SO PT CAN TOLERATE NT SUCTIONING. HERNANDEZ PATENT, DRAINING PINK URINE TO GRAVITY. DIURESED. PIV X 2. DR HOPSON CONSULTED AND ROUNDED. SO AT BEDSIDE. WILL CONTINUE TO MONITOR.
--- NOTE | 2023-01-24 17:06 | NUR ---
SHIFT SUMMARY PT MENTATION AND RESP STATUS IMPROVED SINCE ARRIVAL TO ICU. PT ORIENTED TO SELF, FAMILY, ANSWERS SOME QUESTIONS APPROPRIATELY, UNSURE OF YEAR. FOLLOWS SIMPLE DIRECTIONS, ABLE TO MAKE NEEDS KNOWN. CONTINUES TO BE INTERMITTANTLY IMPULSIVE AND PULLING ON LINES. SOFT BILATERAL WRIST RESTRAINTS IN PLACE, PRECEDEX GTT INFUSING. LUNGS CLEAR, DIM IN BASES AFTER NT SUCTIONING. YELLOW SECRETIONS SENT TO LAB. PT c WEAK COUGH. CURRENTLY ON AIRVO 45L/50%. TOLERATING WELL. RR MID 20'S. ACCESSORY MUSCLES AND OCCASIONAL LABORED BREATHING. HR VARIABLE, RATE 80-140'S, SR. BP STABLE. HERNANDEZ DRAINING DAVID RED URINE. DIURESED THIS SHIFT. ATTEMPTED MRI, [facility]NABLE TO PERFORM [facility]AN FOR CTA AT 1999. HEPARIN PLACED ON STANDBY AT 1146 D/T POSSIBLE HEMATOMA. UPDATED ON PLAN OF CARE. WILL CONTINUE TO MONITOR UNTIL REPORT TO ONCOMING NURSE.
--- NOTE | 2023-01-24 19:00 | NUR ---
ASSUMED CARE OF PT AT 1900 PT RESTING IN BED WHILE BEDSIDE REPORT GIVEN. NO FAMILY AT BEDSIDE. BUE IN SOFT RESTRAINTS AT THIS TIME. VITALS STABLE. PLEASE SEE FULL ASSESSMENT FOR FURTHER DETAILS.
--- NOTE | 2023-01-24 22:22 | NUR ---
DR HOPSON CALLED WITH CT RESULTS. REQUEST TO CALL PT SPOUSE BY . SPOUSE DHARA CALLED WITH RESULTS. RESULTS ALSO SENT TO [facility] IN [place] FOR CONSULT BY DR HOPSON.
[2023-01-25] VITALS (77 sets, daily range): BP systolic 93–174; BP diastolic 67–105
--- NOTE | 2023-01-25 01:57 | NUR ---
NICARDAPINE DRIP STARTED AT 0130.
--- NOTE | 2023-01-25 02:36 | NUR ---
PT DESATING TO 86-89% ON 45 LPM/50%. RT IN ROOM WITH THIS RN FOR NASO SUCTIONING. TAY STICKY SPUTUM OBTAINED WITH SPO2 RESULTING >93%.
[2023-01-25 03:47] LABS: BASOPHILS ABSOLUTE AUTO 0.02 K/mm3 (0.00-0.23); BASOPHILS PERCENT AUTO 0 % (0-2); EOSINOPHILS PERCENT AUTO 0 % (0-6); Hematocrit 28.9 % (37.0-53.0); Hemoglobin 9.2 g/dL (13.5-17.5); IMMATURE GRAN ABSOLUTE AUTO 0.07 K/mm3 (0.00-0.10); IMMATURE GRAN PERCENT AUTO 0 % (0-1); LYMPHOCYTES ABSOLUTE AUTO 0.48 K/mm3 (0.84-5.20); LYMPHOCYTES PERCENT AUTO 3 % (21-46); MONOCYTES ABSOLUTE AUTO 1.35 K/mm3 (0.16-1.47); MONOCYTES PERCENT AUTO 9 % (4-13); Mean Corpuscular HGB 27.8 pg (26.0-34.0); Mean Corpuscular HGB Conc 31.8 g/dL (31.5-36.5); Mean Corpuscular Volume 87 fL (80-100); Mean Platelet Volume 9.7 fL (9.1-12.4); NEUTROPHILS ABSOLUTE AUTO 13.93 K/mm3 (1.96-9.15); NEUTROPHILS PERCENT AUTO 88 % (41-73); Platelet Count 188 K/mm3 (150-400); RDW Coefficient Variation 20.6 % (11.7-14.2); RDW Standard Deviation 65.4 fL (35.1-46.3); Red Blood Cell Count 3.31 M/mm3 (4.30-5.90); White Blood Cell Count 15.85 K/mm3 (4.00-11.30)
[2023-01-25 04:03] LABS: International Normalized Ratio 2.82; Prothrombin Time Results 27.9 Sec (9.7-11.5)
[2023-01-25 04:07] LABS: Bun/Creatinine Ratio 52.6 (12.0-20.0); Calcium, Blood 8.3 mg/dL (8.5-10.1); Creatinine, Blood 0.63 mg/dL (0.60-1.20); Potassium, Blood 3.3 mmol/L (3.5-5.5)
--- NOTE | 2023-01-25 05:02 | NUR ---
LACTATED RINGERS STARTED PER AUG. NS STOPPED AT THIS TIME.
--- NOTE | 2023-01-25 06:15 | NUR ---
END OF SHIFT SUMMARY A/O X3-4. PT GETS AGITATED VERY EASILY WITH NPO STATUS. RESTRAINTS IN PLACE D/T PT PULLING AT LINES INCLUDING AIRVO TUBING AND SECUREMENT DEVICE. PT IS EASILY REDIRECTED, HOWEVER MAKES STATEMENT PERTAINING TO NOT WANTING CARE AND WANTS TO LEAVE THE FACILITY AND DISCONTINUE TREATMENT. PRECEDEX TREATMENT GIVEN PER EMAR. RESP- PT DESAT WITH SPUTUM BUILD UP DOWN TO 80'S WITH NO RECOVERY UNTIL SUCTIONED BY RT. QUICK RECOVERY NOTED. CARDIAC- SINUS TACH, PVC'S, SHORT PAUSES NOTED ON MONITOR THROUGHT THE NIGHT. THIS IS NO CHANGE TO DAY SHIFT FINDINGS ON PREVIOUS SHIFT. BLOOD PRESSURES TREATED PER EMAR WITH CALL TO FOR CARDIAC DRIP FOR BETTER CONTROL WITH ORDERS FOR PERAMETORS NOTED. SEE ORDERS FOR FURTHER DETAILS. GI,- NO BM THIS SHIFT. SCANT URINE IN CATH BAG. BLADDER SCAN DONE WITH 35 MLS NOTED. LR @ 150 MLS/HR PER DR HOPSON ORDERS. NO OTHER PERTINENT CHANGES TO NOTE AT THIS TIME. WILL CONTINUE TO MONITOR UNTIL REPORT IS GIVEN TO DAY RN.
--- NOTE | 2023-01-25 17:30 | NUR ---
SHIFT SUMMARY NO ACUTE CHANGES THIS SHIFT. PT HAS REMAINED ALERT AND ABLE TO FOLLOW DIRECTIONS WHILE AWAKE. PT FORGETFUL AT TIMES, NEEDING REORIENTATION TO SITUATION AND PLAN OF CARE. PT REMAINS IMPULSIVE AT TIMES. PRECEDEX INFUSING AT 0.6 MCG/KG/HR. VITAL SIGNS HAVE REMAINED STABLE. NICARDIPINE GTT INFUSING AT 2.5 MG/HR, NS TKO, AND D5 1/2 NS W KCL AT 150 ML/HR. PT REMAINS ON AIRVO AT 45L, FIO2 45%. PT WITH COARSE UPPER AIRWAY SOUNDS AND UNABLE TO CLEAR SECRETIONS WITH WEAK COUGH EFFORT. PT NT SUCTIONED PER RT WITH MINIMAL IMPROVEMENT WITH SECRETIONS. PT ABLE TO TOLERATE SIPS OF WATER WELL. HERNANDEZ REMAINS IN PLACE WITH DARK PINK COLORED URINE OUTPUT NOTED. RECTAL TEMP PROBE IN PLACE. PT REPORTS BEING UNABLE TO PURPOSFULLY MOVE BLE'S. PT DOES WITHDRAW BLE'S TO NOXIOUS STIMULI. DR ROQUE AWARE. PT SPOUSE AND OTHER FAMILY MEMBERS AT BEDSIDE THIS SHIFT. WILL CONTINUE TO MONITOR AND REPORT OFF TO ONCOMING RN.
--- NOTE | 2023-01-25 18:28 | NUR ---
RESPIRATORY DECLINE PT WITH ACUTE DESATURATION TO HIGH 70'S. PT ONLY ABLE TO INITIALLY RECOVER TO LOW 80'S WITH AIRVO AT 60L, FIO2 100%, AND FACE MASK AT 15L. PRECEDEX INCREASED TO 1.0 MCG/KG/HR AND PT MED WITH FENTANYL PER EMAR. DISCUSSED NEED FOR POTENTIAL INTUBATION WITH PT AND SPOUSE IF PT DOES NOT RECOVER. PT WITH SPO2 MID 80'S FOR 15 MINS. PT NOW WITH SPO2 > 98%. AIRVO AND TITRATED DOWN TO 50L, FIO2 80%, FACE MASK 9L. PT RESTING QUIETLY AT THIS TIME. WILL CONTINUE TO MONITOR.
--- NOTE | 2023-01-25 19:20 | NUR ---
ASSUMED CARE OF PT AT 1900 PT AWAKE WITH SPOUSE DHARA AT BEDSIDE DURING SHIFT REPORT. NICARDIPINE 2.5 MG/HR PRCEDEX @ 1.0 50/80% AIRVO AT THIS TIME. VITALS WNL FOR PATIENT AT THIS TIME. SEE FULL ASSESSMENT FOR FURTHER INFORATION.
--- NOTE | 2023-01-25 23:37 | NUR ---
CALLED HOSPITALIST D/T DAWSON, PAUSES, AND PVC'S . CHEM 8 AND MAG ORDERED STAT AT THIS TIME.
[2023-01-26] VITALS (29 sets, daily range): BP systolic 110–147; BP diastolic 69–96
[2023-01-26 00:18] LABS: Bun/Creatinine Ratio 34.6 (12.0-20.0); Calcium, Blood 7.9 mg/dL (8.5-10.1); Creatinine, Blood 0.49 mg/dL (0.60-1.20); Magnesium, Blood 1.8 mg/dL (1.6-2.4); Potassium, Blood 3.1 mmol/L (3.5-5.5)
[2023-01-26 03:34] LABS: BASOPHILS ABSOLUTE AUTO 0.01 K/mm3 (0.00-0.23); BASOPHILS PERCENT AUTO 0 % (0-2); EOSINOPHILS PERCENT AUTO 0 % (0-6); Hematocrit 25.3 % (37.0-53.0); Hemoglobin 8.1 g/dL (13.5-17.5); IMMATURE GRAN ABSOLUTE AUTO 0.05 K/mm3 (0.00-0.10); IMMATURE GRAN PERCENT AUTO 0 % (0-1); LYMPHOCYTES PERCENT AUTO 4 % (21-46); MONOCYTES ABSOLUTE AUTO 0.83 K/mm3 (0.16-1.47); MONOCYTES PERCENT AUTO 7 % (4-13); Mean Corpuscular Volume 88 fL (80-100); Mean Platelet Volume 9.6 fL (9.1-12.4); NEUTROPHILS ABSOLUTE AUTO 11.03 K/mm3 (1.96-9.15); NEUTROPHILS PERCENT AUTO 89 % (41-73); Platelet Count 177 K/mm3 (150-400); RDW Coefficient Variation 20.2 % (11.7-14.2); RDW Standard Deviation 64.9 fL (35.1-46.3); Red Blood Cell Count 2.89 M/mm3 (4.30-5.90); White Blood Cell Count 12.42 K/mm3 (4.00-11.30)
[2023-01-26 03:47] LABS: International Normalized Ratio 1.9; Prothrombin Time Results 19.2 Sec (9.7-11.5)
[2023-01-26 03:50] LABS: Bun/Creatinine Ratio 32.3 (12.0-20.0); Creatinine, Blood 0.47 mg/dL (0.60-1.20); Magnesium, Blood 1.7 mg/dL (1.6-2.4); Phosphorus, Blood 1.3 mg/dL (2.5-4.9); Potassium, Blood 3.3 mmol/L (3.5-5.5)
--- NOTE | 2023-01-26 05:29 | NUR ---
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
--- NOTE | 2023-01-26 06:04 | NUR ---
END OF SHIFT SUMMARY A/O X4. PT REPORTS NOT REMEMBERING BEING IN FACILTY FOR 3 DAYS. FOLLOWS COMMANDS. RESP- AIRVO SET TO 50L/65%. AT APPROX 0500 THIS AM PT BEGAN TO DESAT TO 87% WITHOUT RECOVERY. RT CALLED NT SUCTION PERFORMED WITH RECOVERY WITHIN MINUTES TO >93%. SPUTUM SUCTIONED IS TAY AND THICK. PT CONTINUES TO HAVE A WEAK COUGH, HOWEVER HE IS ABLE TO COUGH UP SMALL AMOUNTS OF SPUTUM NOW. CARDIAC- AT APPROX 2300 THIS SHIFT PT BEGAN TO SHOW BIGEMANY ON MONITOR AND WELL SMALL PAUSES. DR MOHR WAS INFORMED AND ORDERED CHEM 8 AND MAG. RESULTS OF LAB GIVEN TO DR BRUNER WITH ORDER FOR POTASSIUM IV. ORDERS GIVEN PER EMAR ORDERS. NO BIGEMANY AT THIS TIME. MUSKULO- PT REPORTS THIS AM THAT HE IS UNABLE TO FEEL HIS LEGS. DR ROQUE INFORMED OF THIS ISSUE. CT WWO CONTRAST ORDERED THIS AM. PT ALSO REPORTS HAVING LOEYS-DOMINICK SYNDROME WHILE IN CONVERSATION. GI,- NO BM THIS SHIFT. HERNANDEZ CATH DRAINING TO GRAVITY WITH RED URINE NOTED. MEDICATIONS- -PT BECAME FEBRILE UP TO 101.2 THIS SHIFT. MED GIVEN PER EMAR WITH TEMP DOWN TO 100.0 AT THIS TIME. -FENT GIVEN FOR PAIN DIRECTED. PT DOES NOT FEEL THAT 50 MCG OF FENT IS SUFFICIENT FOR HIS PAIN MANAGEMENT. PT REPORTS TAKING OXYCODONE AND A MUSCLE RELAXANT AT HOME D/T CHRONIC SEVERE BACK AND NECK PAIN. -PRECEDEX @ 0.4MCG -NICARDIPINE @ 2.5 MG/HR WILL CONTINUE TO MONITOR UNTIL REPORT GIVEN TO DAY SHIFT RN.
[2023-01-26 09:29] LABS: Vancomycin, Trough 8.5 ug/mL (5.0-10.0)
--- NOTE | 2023-01-26 11:43 | NUR ---
TRANSFER S/P CT SCANS OF HEAD AND SPINE THIS AM, DR ROQUE INITIATED PT TRANSFER FOR HOSPITAL WITH NEUROSURGERY DUE TO EMERGENT CONDITION OF SPINE. PT TO BE TRANSFERED TO [facility] IN [place]. PT AND PT SPOUSE, WHO IS AT BEDSIDE HAVE BEEN UPDATED BY DR ROQUE. PT IS AGREEABLE TO TRANSFER AND VERBALIZED UNDERSTANDING OF SITUATION. PT WITHOUT CHANGE IN NEURO STATUS SINCE AM ASSESSMENT. PT REMAINS WITH NUMBNESS TO BLE'S FROM HIPS DOWN AND IS UNABLE TO PURPOSEFULLY MOVE BLE'S. PT DOES CONTINUE TO WITHDRAW BLE'S TO NOXIOUS SIMULI AT THIS TIME. PT CONTINUES WITH MID BACK PAIN AND MED PER EMAR. PT TO BE GIVEN VITAMIN K AND 2 UNITS OF FFP AT THIS TIME. DR ROQUE OK'D FOR EMERGENCY RELEASE FFP TO BE GIVEN IN THE SETTING OF URGENT PT TRANSFER. VITAL SIGNS REMAIN STABLE. PT REMAINS WITH PRECEDEX AND NICARDIPINE GTT'S INFUSING. AWAITING REACH TRANSPORT AT THIS TIME. WILL CONTINUE TO MONITOR.
--- NOTE | 2023-01-26 13:05 | NUR ---
TRANSFER OUT REPORT CALLED TO REYES RN AT [facility] AT 1305. PT LEFT ICU 11 WITH REACH TRANSPORT AT 1255. REPORT GIVEN TO REACH RN'S AT BEDSIDE. 2 UNITS OF FFP STARTED PRIOR TO PT LEAVING. ALL PT BELONGINGS TAKEN WITH PT SPOUSE DHARA.
== END 2023-01-26 12:55 | disposition short-term general hospital (02) | DRG 871 ==
LOC: ER 11:02 → PCU 15:47 → ICUE 15:47 → PCU 17:34 → ICUE 23:14 → PCU 01-24 03:01 → ICUE 01-24 08:43
PROVIDERS: Emergency Medicine; Family Medicine; Hospitalist; Internal Medicine Critical Care Medicine; Nurse Practitioner Acute Care; ADMIT Internal Medicine
PROC: 3E03329 Introduction of Other Anti-infective into Peripheral Vein, Percutaneous Approach (ICD-10-PCS; principal; 2023-01-23)
PROC: 5A09357 Assistance with Respiratory Ventilation, Less than 24 Consecutive Hours, Continuous Positive Airway Pressure (ICD-10-PCS; 2023-01-23)
PROC: 4A033R1 Measurement of Arterial Saturation, Peripheral, Percutaneous Approach (ICD-10-PCS; 2023-01-23)
DX: A41.9 Sepsis, unspecified organism (principal); R65.20 Severe sepsis without septic shock; N39.0 Urinary tract infection, site not specified; G92.8 Other toxic encephalopathy; I62.00 Nontraumatic subdural hemorrhage, unspecified; J96.21 Acute and chronic respiratory failure with hypoxia; I21.A1 Myocardial infarction type 2; I62.1 Nontraumatic extradural hemorrhage; G95.20 Unspecified cord compression; E87.20 Acidosis, unspecified; I16.1 Hypertensive emergency; R64 Cachexia; J44.9 Chronic obstructive pulmonary disease, unspecified; Z95.2 Presence of prosthetic heart valve; R56.9 Unspecified convulsions; I48.0 Paroxysmal atrial fibrillation; R79.89 Other specified abnormal findings of blood chemistry; E87.6 Hypokalemia; Z20.822 Contact with and (suspected) exposure to COVID-19; E78.5 Hyperlipidemia, unspecified; I10 Essential (primary) hypertension; M54.50 Low back pain, unspecified; M54.2 Cervicalgia; G89.29 Other chronic pain; F17.210 Nicotine dependence, cigarettes, uncomplicated; M79.89 Other specified soft tissue disorders; F12.90 Cannabis use, unspecified, uncomplicated; F11.90 Opioid use, unspecified, uncomplicated; N40.0 Benign prostatic hyperplasia without lower urinary tract symptoms; R00.0 Tachycardia, unspecified; R93.0 Abnormal findings on diagnostic imaging of skull and head, not elsewhere classified; Z79.01 Long term (current) use of anticoagulants; Z79.51 Long term (current) use of inhaled steroids; Z79.899 Other long term (current) drug therapy
CPT/HCPCS: 31720; 36415; 36430; 36600; 51701; 70450; 70470; 71045; 72125; 72128; 72131; 80047; 80048; 80053; 80202; 81001; 82550; 82803; 82947; 83605; 83735; 84100; 84145; 84146; 84484; 85014; 85018; 85025; 85520; 85610; 85651; 85730; 86140; 86900; 86901; 87040; 87070; 87077; 87086; 87186; 87205; 93005; 93010; 93306; 94640; 94660; 94664; 94760; 94762; 96365; 96375; 96376; 99285-25; A9270; J0696; J1200; J1630; J1644; J1885; J1940; J1953; J2060; J2270; J2543; J3010; J3370; J3480; J7030; J7040; J7050; J7060; J7120; P9059; Q9967; U0002

== ENCOUNTER 2023-05-28 18:08 | Inpatient (IN) | payer OTHER ==
[~2023-05-28] VITALS: Ht 177.8 cm; Wt 56.5 kg
[~2023-05-28 18:08] MED LIST changes: -Flecainide Acet50 MG; +Flecainide Acet50 MG PO; +OXYC5 PO; +PANT40 PO; +TIOT18 INH; +Ventolin/Prove6.7 GM INH
[2023-05-28 19:33] LABS: BASOPHILS ABSOLUTE AUTO 0.05 K/mm3 (0.00-0.23); BASOPHILS PERCENT AUTO 1 % (0-2); EOSINOPHILS ABSOLUTE AUTO 0.15 K/mm3 (0.00-0.68); EOSINOPHILS PERCENT AUTO 2 % (0-6); Hematocrit 24.3 % (37.0-53.0); Hemoglobin 7.5 g/dL (13.5-17.5); IMMATURE GRAN ABSOLUTE AUTO 0.05 K/mm3 (0.00-0.10); IMMATURE GRAN PERCENT AUTO 1 % (0-1); LYMPHOCYTES ABSOLUTE AUTO 1.38 K/mm3 (0.84-5.20); LYMPHOCYTES PERCENT AUTO 14 % (21-46); MONOCYTES ABSOLUTE AUTO 0.61 K/mm3 (0.16-1.47); MONOCYTES PERCENT AUTO 6 % (4-13); Mean Corpuscular HGB 25.6 pg (26.0-34.0); Mean Corpuscular HGB Conc 30.9 g/dL (31.5-36.5); Mean Corpuscular Volume 83 fL (80-100); Mean Platelet Volume 9.1 fL (9.1-12.4); NEUTROPHILS ABSOLUTE AUTO 7.49 K/mm3 (1.96-9.15); NEUTROPHILS PERCENT AUTO 77 % (41-73); Platelet Count 267 K/mm3 (150-400); RDW Coefficient Variation 24.6 % (11.7-14.2); RDW Standard Deviation 73.5 fL (35.1-46.3); Red Blood Cell Count 2.93 M/mm3 (4.30-5.90); White Blood Cell Count 9.73 K/mm3 (4.00-11.30)
[2023-05-28 19:45] LABS: Influenza A, PCR NEGATIVE (NEGATIVE); Influenza B, PCR NEGATIVE (NEGATIVE); Resp Syncytial Virus, PCR NEGATIVE (NEGATIVE); SARS-Cov-2 (COVID-19) PCR, MMC NEGATIVE (NEGATIVE)
[2023-05-28 19:55] LABS: Albumin, Blood 2.4 g/dL (3.4-5.0); Albumin/Globulin Ratio 0.7 (0.8-1.8); Bilirubin, Total 0.2 mg/dL (0.1-1.0); Bun/Creatinine Ratio 121.9 (12.0-20.0); Creatinine, Blood 0.4 mg/dL (0.60-1.20); Globulin, Blood 3.3 g/dL (2.2-4.0); Potassium, Blood 4.1 mmol/L (3.5-5.5); Total Protein, Blood 5.7 g/dL (6.4-8.2)
[2023-05-28 20:21] LABS: Source, Urine Foley catheter
[2023-05-28 20:48] LABS: Appearance, Urine Turbid (Clear); Bilirubin, Urine Neg (Neg); Blood, Urine 5+ (Neg); Color, Urine Yellow (P-Yellow); Glucose Qualitative, Urine Neg (Neg); Ketones, Urine Neg (Neg); Leukocyte Esterase, Urine 3+ (Neg); Nitrite, Urine Pos (Neg); Protein, Urine 3+ (Neg); Specific Gravity, Urine 1.015 (1.003-1.022); Urobilinogen, Urine NORM (Normal)
[2023-05-28 21:02] LABS: Bacteria Many /hpf; Red Blood Cells, Urine 50-100 /hpf (0-2); Squamous Epithelial Cells Few /hpf (Few); White Blood Cells, Urine 50-100 /hpf (0-5)
[2023-05-28 23:20] LABS: IMMATURE RETIC FRACTION 28.2 % (2.3-16.0); RETIC HGB EQUIVALENT 29.9 pg (28.20-36.60); RETICULOCYTE ABSOLUTE 0.1087 M/mm3 (0.0200-0.1100); RETICULOCYTE COUNT PERCENT 3.8 % (0.50-2.50)
[2023-05-28 23:37] LABS: Percent Saturation 8.7 % (20.0-50.0)
[2023-05-29] VITALS (9 sets, daily range): BP systolic 90–131; BP diastolic 63–83
[2023-05-29 02:49] LABS: BASOPHILS ABSOLUTE AUTO 0.03 K/mm3 (0.00-0.23); BASOPHILS PERCENT AUTO 0 % (0-2); EOSINOPHILS ABSOLUTE AUTO 0.01 K/mm3 (0.00-0.68); EOSINOPHILS PERCENT AUTO 0 % (0-6); Hematocrit 20.3 % (37.0-53.0); Hemoglobin 6.2 g/dL (13.5-17.5); IMMATURE GRAN ABSOLUTE AUTO 0.05 K/mm3 (0.00-0.10); IMMATURE GRAN PERCENT AUTO 1 % (0-1); LYMPHOCYTES ABSOLUTE AUTO 1.13 K/mm3 (0.84-5.20); LYMPHOCYTES PERCENT AUTO 13 % (21-46); MONOCYTES ABSOLUTE AUTO 0.43 K/mm3 (0.16-1.47); MONOCYTES PERCENT AUTO 5 % (4-13); Mean Corpuscular HGB 25.4 pg (26.0-34.0); Mean Corpuscular HGB Conc 30.5 g/dL (31.5-36.5); Mean Corpuscular Volume 83 fL (80-100); Mean Platelet Volume 9.4 fL (9.1-12.4); NEUTROPHILS ABSOLUTE AUTO 7.42 K/mm3 (1.96-9.15); NEUTROPHILS PERCENT AUTO 82 % (41-73); Platelet Count 246 K/mm3 (150-400); RDW Coefficient Variation 24.7 % (11.7-14.2); RDW Standard Deviation 74.3 fL (35.1-46.3); Red Blood Cell Count 2.44 M/mm3 (4.30-5.90); White Blood Cell Count 9.07 K/mm3 (4.00-11.30)
[2023-05-29 03:08] LABS: Albumin, Blood 2.3 g/dL (3.4-5.0); Albumin/Globulin Ratio 0.8 (0.8-1.8); Bilirubin, Total 0.2 mg/dL (0.1-1.0); Bun/Creatinine Ratio 128.6 (12.0-20.0); Calcium, Blood 7.2 mg/dL (8.5-10.1); Creatinine, Blood 0.35 mg/dL (0.60-1.20); Potassium, Blood 3.8 mmol/L (3.5-5.5); Total Protein, Blood 5.3 g/dL (6.4-8.2)
[2023-05-29 07:47] LABS: Prothrombin Time Results 62.1 Sec (9.7-11.5)
[2023-05-29 07:54] LABS: International Normalized Ratio 6.58
--- NOTE | 2023-05-29 11:05 | NUR ---
AT ABOUT 1040 THIS MORNING THE PT START HAVING 6//10 CHEST PAIN IN HIS LEFT CHEST WALL AND IT RADIATED TO HIS RIGHT AND LEFT JAW. HIS HR AT THE TIME TAHCED UP TO THE 130'S AND WAS HAVING BIGEMENY. WE OBTAINED AN EKG AND IT SHOWED THE PT TO BE IN AN ACCELERATED JUNCTIONAL RHYTHM W/ PVC, AND A PROLONGED QTC OF 557. I CALLED DR. JUARES AND LET HIM KNOW. HE SAID HE WAS GOING TO PUT IN SOME ORDERS.
[2023-05-29 15:11] LABS: Hematocrit 21.7 % (37.0-53.0); Hemoglobin 6.9 g/dL (13.5-17.5)
[2023-05-29 16:07] LABS: Hematocrit 21.7 % (37.0-53.0); Hemoglobin 6.9 g/dL (13.5-17.5); Mean Corpuscular HGB 26.8 pg (26.0-34.0); Mean Corpuscular HGB Conc 31.8 g/dL (31.5-36.5); Mean Corpuscular Volume 84 fL (80-100); Mean Platelet Volume 9.4 fL (9.1-12.4); Platelet Count 242 K/mm3 (150-400); RDW Standard Deviation 69.9 fL (35.1-46.3); Red Blood Cell Count 2.57 M/mm3 (4.30-5.90); White Blood Cell Count 10.51 K/mm3 (4.00-11.30)
--- NOTE | 2023-05-29 18:14 | NUR ---
SHIFT SUMMARY PT IS A&OX4, PARAGLEGIC W/ SOME SPASTIC MOVEMENT IN BLE, AND HE CALLS APPROPRIATELY. HE WAS A NEW ADMIT THIS AFTERNOON FOR SEPSIS. HE IS ON A CLEAR LIQUID DIET WITH A SUSPECTID LOWER GI BLEED. HE IS HAVING HARD BLACK TACKY INC STOOLS, AND HIS HGB HAS BEEN LESS THAN 7.0. THE PT IS CURRENTLY RECIEVING HIS 2ND UNIT OF PRBC. HE HAD ONE EPISODE OF ANGINA TODAY, SEE PREVIOUS NOTE FOR MORE INFORMATION. TROP WAS NEGATIVE. WE ARE REDRAWING A TROPONIN THIS EVENING. WE GOT AN EKG ON THE PT AND IT SHOWED HIM TO BE IN AN ACCELERATED JUNCTIONAL RHYTHM 60-130 W/ PVC'S. WHEN THE PT WAS HAVING ANGINA HE WAS HAVING A RUN OF BIGEMENY IN THE 130'S. THE PT IS ON A PROTONIX GTT AT THIS TIME. HE HAS A CHRONIC HERNANDEZ THAT WAS CHANGED OUT IN THE ER. HE IS A Q2 TURN, AND A LIFT PT. AT BASELINE THE PT STATES HE STAYS IN BED. HE DOES HAVE SOME BREAK DOWN ON HIS BOTTOM THAT HE WAS NOT AWARE OF. HE IS ON RA W/O ANY C/O SOB. FIRE IGNITION RISK HAS BEEN ASSESSED. SEE NOTES FOR ANY UPDATES.
[2023-05-29 20:52] LABS: Hemoglobin 7.6 g/dL (13.5-17.5)
[2023-05-30] VITALS (11 sets, daily range): BP systolic 124–150; BP diastolic 68–84
[2023-05-30 02:12] LABS: Hematocrit 22.4 % (37.0-53.0); Hemoglobin 7.3 g/dL (13.5-17.5); Mean Corpuscular HGB Conc 32.6 g/dL (31.5-36.5); Mean Corpuscular Volume 83 fL (80-100); Mean Platelet Volume 9.3 fL (9.1-12.4); NRBC ABSOLUTE 0.02 K/mm3 (0.00-0.02); NRBC Auto 0.2 /100 WBC (0.0-0.2); Platelet Count 223 K/mm3 (150-400); RDW Coefficient Variation 21.4 % (11.7-14.2); RDW Standard Deviation 63.5 fL (35.1-46.3); White Blood Cell Count 9.62 K/mm3 (4.00-11.30)
--- NOTE | 2023-05-30 06:00 | NUR ---
SHIFT SUMMARY A/Ox4 AND COOPERATIVE WITH CARE. ANSWERS QUESTIONS APPROPRIATELY AND ABLE TO MAKE HIS NEEDS KNOWN. CARDIAC REMAINS IN JUNCTIONAL RANGING 70-90'S WITH NO REPORTS OF CP OR PRESSURE T/O THE NIGHT. SBP HAS BEEN SOFT BUT STABLE RANGING 100-140'S T/O THE NIGHT. RESPIRATORY, MAINTAINS SPO2 >95% ON RA, DENIES SOB OR DSYPNEA WHILE AT REST. GI/, HERNANDEZ CATH REMAINS PATENT AND DRAINING YELLOW URINE TO GRAVITY. CONTINUES TO HAVE DARK TARRY STOOLS WITH ONE BM THIS SHIFT. Hgb TRENDED DOWN TO 7.3 THIS AM. PROTONIX gtt INFUSING T/O THE NIGHT ORDERED VIA EMAR. PAIN HAS BEEN WELL MANAGED WITH PRN PAIN MEDICATIONS. ASSESSED PT FOR RISKS OF ANY IGNITION SOURCES WELL BEHAVIORS FOR INCREASED RISKS OF FIRE DANGER. PT EDUCATED ON COMMON SOURCES OF IGNITION WELL NEED TO KEEP A SAFE ENVIRONMENT. PT VOICED UNDERSTANDING. NO NEW ORDERS AT THIS TIME, WILL REPORT TO ONCOMING RN. TIBURCIO PENALOZA OF THIS NOTE
[2023-05-30 06:14] LABS: Hemoglobin 7.5 g/dL (13.5-17.5)
[2023-05-30 06:36] LABS: Prothrombin Time Results 65.1 Sec (9.7-11.5)
[2023-05-30 07:18] LABS: International Normalized Ratio 6.92
--- NOTE | 2023-05-30 07:45 | NUR ---
AM ASSESSMENT: Pt laying in bed. C/O neck and back pain that is chronic. Will medicate per orders. LS diminished. HR reg, tele shows junctional rhythm. Mechanical valve heard with auscultation. BT hyperactive. Pt had small, black, incontinent BM. Protonix gtt running. Pt states that he has very little feeling from waist down, does not know when he has a BM. States that he can sometimes feel hot and cold in LE. Attends changed and Pt repositioned. Red buttock/coccyx, non-blanching. Open sore noted. Mepalex changed. +1 edema in BLE. BLE floated on pillows. Pt requesting pain medication as soon as he can have it. Will treat per orders. Call light in reach.
[2023-05-30 09:43] LABS: Stool Occult Blood Guaiac 1 Pos (Neg)
[2023-05-30 10:02] LABS: Hematocrit 21.7 % (37.0-53.0); Hemoglobin 7.1 g/dL (13.5-17.5); Mean Corpuscular HGB 27.8 pg (26.0-34.0); Mean Corpuscular HGB Conc 32.7 g/dL (31.5-36.5); Mean Corpuscular Volume 85 fL (80-100); Mean Platelet Volume 9.2 fL (9.1-12.4); NRBC ABSOLUTE 0.02 K/mm3 (0.00-0.02); NRBC Auto 0.3 /100 WBC (0.0-0.2); Platelet Count 218 K/mm3 (150-400); RDW Coefficient Variation 21.5 % (11.7-14.2); RDW Standard Deviation 65.8 fL (35.1-46.3); Red Blood Cell Count 2.55 M/mm3 (4.30-5.90); White Blood Cell Count 7.64 K/mm3 (4.00-11.30)
[2023-05-30 15:14] LABS: Hematocrit 21.5 % (37.0-53.0); Hemoglobin 6.9 g/dL (13.5-17.5)
--- NOTE | 2023-05-30 17:40 | NUR ---
SHIFT SUMMARY: Pt sitting up in bed eating clear liquid dinner. PRBC transfusion started per orders. Pt verbalized understanding of possible blood reaction. VSS at this time. Pt has had his chronic back pain throughout the day that has been managed with oxycodone per orders and repositioning. Pt has remained in an accelerated junctional rhythm this shift with occasional runs of bigemony. Pt has remained asymptomatic. Pt has had 3 BM's this shift. first 2 were soft, small and black. 3rd was more formed and appeared more brown. HGB dropped (see labs) and blood transfusion ordered. Will continue to monitor. No other changes this shift. WIll report to night RN.
[2023-05-30 22:57] LABS: Hematocrit 25.2 % (37.0-53.0); Hemoglobin 8.4 g/dL (13.5-17.5)
[2023-05-31 03:24] VITALS: BP 140/64
[2023-05-31 04:19] LABS: Hematocrit 25.4 % (37.0-53.0); Hemoglobin 8.3 g/dL (13.5-17.5); Mean Corpuscular HGB Conc 32.7 g/dL (31.5-36.5); Mean Corpuscular Volume 86 fL (80-100); Mean Platelet Volume 9.5 fL (9.1-12.4); NRBC ABSOLUTE 0.02 K/mm3 (0.00-0.02); NRBC Auto 0.3 /100 WBC (0.0-0.2); Platelet Count 225 K/mm3 (150-400); RDW Coefficient Variation 20.9 % (11.7-14.2); RDW Standard Deviation 63.5 fL (35.1-46.3); Red Blood Cell Count 2.96 M/mm3 (4.30-5.90); White Blood Cell Count 5.96 K/mm3 (4.00-11.30)
[2023-05-31 04:41] LABS: International Normalized Ratio 3.29; Prothrombin Time Results 32.3 Sec (9.7-11.5)
[2023-05-31 04:45] LABS: Albumin, Blood 2.4 g/dL (3.4-5.0); Anion Gap 6 mmol/L (6-16); Blood Urea Nitrogen 13 mg/dL (8-24); Bun/Creatinine Ratio 37.9 (12.0-20.0); CO2, Blood 23 mmol/L (21-32); Calcium, Blood 7.9 mg/dL (8.5-10.1); Chloride, Blood 112 mmol/L (98-108); Creatinine, Blood 0.34 mg/dL (0.60-1.20); Glomerular Filtration Rate 126 (60-); Glucose, Blood 101 mg/dL (70-99); Magnesium, Blood 1.5 mg/dL (1.6-2.4); Phosphorus, Blood 2.3 mg/dL (2.5-4.9); Potassium, Blood 2.9 mmol/L (3.5-5.5); Sodium, Blood 141 mmol/L (136-145)
--- NOTE | 2023-05-31 05:18 | NUR ---
UPDATE PT'S MORNING LABS SHOWED LOW VALUES IN POTASSIUM, PHOSPHORUS, AND MAG. NOC MD DR. NOVA Vasques NOTIFIED WITH ORDERS FOR PO WELL IV POTASSIUM REPLACEMENT. NO FURTHER ORDERS AT THIS TIME.
--- NOTE | 2023-05-31 06:56 | NUR ---
SHIFT SUMMARY A/Ox4 AND COOPERATIVE WITH CARE. ANSWERS QUESTIONS APPROPRIATELY AND ABLE TO MAKE HIS NEEDS KNOWN. CARDIAC, REMAINS IN JUNCTIONAL RHYTHM 70-80'S WITH INTERMITTENT EPISODES OF BIGEMINY/TRIGEMINY. NO REPORTS OF CP OR PRESSURE T/O THE NIGHT. RESPIRATORY, MAINTAINS SPO2 >94% ON RA WITH NO REPORTS OF SOB OR DYSPNEA. /, CONTINUES TO HAVE BLACK TARRY STOOL, BUT APPEARS TO BE BECOMING MORE BROWN/FORMED. RECEIVED ONE UNIT OF PRBC DURING DAYSHIFT WITH Hgb INCREASING TO 8.4. MORNING LABS INDICATE 8.3. HERNANDEZ CATH REMAINS PATENT AND DRAINING YELLOW URINE TO GRAVITY. PROTONIX gtt INFUSING T/O THE NIGHT ORDERED VIA EMAR. PAIN HAS BEEN WELL MANAGED WITH PRN PAIN MEDICATIONS. COCCYX DRESSING CHANGED TO KEEP C/D/I. Q2HR REPOSITIONING TO KEEP PRESSURE OFF OF BONY PROMINENCES. ASSESSED PT FOR RISKS OF ANY IGNITION SOURCES WELL BEHAVIORS FOR INCREASED RISKS OF FIRE DANGER. PT EDUCATED ON COMMON SOURCES OF IGNITION WELL NEED TO KEEP A SAFE ENVIRONMENT. PT VOICED UNDERSTANDING. NO NEW ORDERS AT THIS TIME, WILL REPORT TO ONCOMING RN. TIBURCIO PENALOZA OF THIS NOTE
[2023-05-31 08:42] VITALS: BP 144/86
[2023-05-31 14:34] LABS: Hematocrit 27.4 % (37.0-53.0); Hemoglobin 8.9 g/dL (13.5-17.5)
[2023-05-31 17:01] VITALS: BP 134/93
[2023-05-31 18:16] VITALS: BP 103/65
--- NOTE | 2023-05-31 18:31 | NUR ---
SHIFT SUMMARY PT ALERT AND ORIENTED X 4, COOPERATIVE WITH CARE AND ABLE TO MAKE NEEDS KNOWN. ALFREDO. PT ON RA AND MAINTAINED 02 SATURATION ABOVE 92%, HE DENIED SOB. PT DENIES CHEST PAIN/PRESSURE. PT DID NOT HAVE A BOWEL MOVEMENT THIS SHIFT. CHRONIC EHRNANDEZ CATHETER IN PLACE AND DRAINED YELLOW URINE WITH GRAVITY. NO SIGNS OR SYMPTOMS OF BLEEDING OBSERVED THIS SHIFT. MEPILEX IN PLACE ON COCCYX. PT TURNED EVERY TWO HOURS. PT COMPLAINED OF BACK PAIN THROUGHOUT SHIFT AND WAS MEDICATED PER EMAR. PT STARTED OFF THE DAY ON CLEAR LIQUIDS AND WAS ADVANACED TO SMALL BITES, PT TOLERATED WELL. PT'S CAME TO VISIT HIM BRIEFLY TODAY. AT BEGINNING OF SHIFT PT SAID HE WOULD LIKE TO GET SLEEP TODAY BECAUSE HE DID NOT SLEEP WELL LAST NIGHT. PT GOT A COUPLE NAPS IN TODAY, BUT HE SAID HE WOULD HAVE LIKE TO HAVE SLEPT MORE BUT WAS UNABLE TO FALL ASLEEP. PT TRANSFERRED TO MEDICAL FLOOR AT APPROXIMATELY 1808. REPORT WAS GIVEN TO MEDICAL FLOOR NURSE. PT LEFT WITH ALL OF HIS BELONGINGS AND CHART FOR MEDICAL FLOOR NURSE. PT WAS STABLE AT TIME OF TRANSFER.
--- NOTE | 2023-05-31 18:40 | NUR ---
PT TRANSFERRED TO ROOM AT 181. SETTLED TO ROOM. PLEASANT A/O X4. PAIN MANAGED WITH AVAIL MEDS. BED IN LOW POSITION, CALL LITE IN REACH. CALLS APPROP PROTONIX RUNNING PER EMAR. CONTINUOUS. IVF TKO BAG REPLACED AND RUNNING PER EMAR.
[2023-05-31 20:30] VITALS: BP 125/104
[2023-06-01 04:37] VITALS: BP 158/87
[2023-06-01 06:03] LABS: Hematocrit 26.8 % (37.0-53.0); Hemoglobin 8.6 g/dL (13.5-17.5); Mean Corpuscular HGB 27.7 pg (26.0-34.0); Mean Corpuscular HGB Conc 32.1 g/dL (31.5-36.5); Mean Corpuscular Volume 86 fL (80-100); Mean Platelet Volume 9.3 fL (9.1-12.4); Platelet Count 252 K/mm3 (150-400); RDW Coefficient Variation 21.3 % (11.7-14.2); RDW Standard Deviation 65.2 fL (35.1-46.3); Red Blood Cell Count 3.11 M/mm3 (4.30-5.90); White Blood Cell Count 6.57 K/mm3 (4.00-11.30)
[2023-06-01 06:17] LABS: International Normalized Ratio 1.57; Prothrombin Time Results 16.1 Sec (9.7-11.5)
--- NOTE | 2023-06-01 06:18 | NUR ---
Shift Summary No BM this shift. Chronic Salcedo in place, patent with no issues. Pt c/o sever chronic back pain, medicated per EMAR. He was able to get some sleep tonight. No nausea. IV Protonix running continuously at 10ml/hr as ordered. Pt is AOx4 and cooperative with care.
[2023-06-01 06:25] LABS: Magnesium, Blood 1.7 mg/dL (1.6-2.4)
[2023-06-01 07:43] VITALS: BP 157/90
[2023-06-01 16:19] VITALS: BP 136/81
--- NOTE | 2023-06-01 17:47 | NUR ---
SHIFT SUMMARY PT GI STATUS IMPROVED, ADMITS STOOLS ARE LESS FREQUENT, BEGINNING TO BE FIRM, AND BE BROWN IN COLOR. NO OTHER ACUTE CHANGES THIS SHIFT. CALL LIGHT WITHIN REACH AND PT ABLE TO MAKE NEEDS KNOWN.
[2023-06-01 19:41] VITALS: BP 127/82
[2023-06-02 04:41] VITALS: BP 164/85
--- NOTE | 2023-06-02 06:08 | NUR ---
PT A&O x4, VSS, AFEBRILE, PT ON RA. HERNANDEZ CATHETER DRAINING WELL, DARK YELLOW IN COLOR. NO BM ON THIS SHIFT. PT C/O PAIN TO MIDDLE BACK BETWEEN SHOULDER BLADES. PAIN MANAGED WITH PRN OXYCODONE x3. HEATING PAD SET-UP FOR PT. IV PROTONIX RUNNING CONTINUOUSLY AT 10mL/HR PER ORDERS. PT CALM AND COOPERATIVE WITH CARE PROVIDED. CALL LIGHT WITHIN REACH, WCTM.
[2023-06-02 06:57] LABS: International Normalized Ratio 1.16; Prothrombin Time Results 12.1 Sec (9.7-11.5)
[2023-06-02 07:40] VITALS: BP 142/79
--- NOTE | 2023-06-02 17:46 | NUR ---
SHIFT SUMMARY PT AXO, PLEASANT AND COOPERATIVE WITH CARE THOUGH DID NOT AGREE TO TURN Q2 DESPITE EDUCATION ABOUT SKIN BREAKDOWN. CHRONIC HERNANDEZ IN PLACE, PATENT AND DRAINING CLEAR YELLOW URINE. MEDICATED FOR PAIN PER EMAR WITH LITTLE RELIEF. NO BM THIS SHIFT. PPI INFUSING CONTINUOUSLY PER EMAR. BED IN LOW POSITION, CALL LIGHT WITHIN REACH.
[2023-06-02 17:57] VITALS: BP 134/96
[2023-06-02 19:58] VITALS: BP 141/93
[2023-06-03 04:47] VITALS: BP 131/92
[2023-06-03 05:11] LABS: Hematocrit 31.3 % (37.0-53.0); Hemoglobin 9.9 g/dL (13.5-17.5); Mean Corpuscular HGB 27.7 pg (26.0-34.0); Mean Corpuscular HGB Conc 31.6 g/dL (31.5-36.5); Mean Corpuscular Volume 88 fL (80-100); Platelet Count 316 K/mm3 (150-400); RDW Coefficient Variation 21.1 % (11.7-14.2); RDW Standard Deviation 67.5 fL (35.1-46.3); Red Blood Cell Count 3.57 M/mm3 (4.30-5.90); White Blood Cell Count 6.16 K/mm3 (4.00-11.30)
[2023-06-03 05:37] LABS: Bun/Creatinine Ratio 29.3 (12.0-20.0); Calcium, Blood 8.7 mg/dL (8.5-10.1); Creatinine, Blood 0.44 mg/dL (0.60-1.20); Potassium, Blood 4.2 mmol/L (3.5-5.5)
[2023-06-03 05:47] LABS: International Normalized Ratio 1.04; Prothrombin Time Results 10.9 Sec (9.7-11.5)
[2023-06-03 07:23] VITALS: BP 118/86
[2023-06-03 15:05] VITALS: BP 108/87
--- NOTE | 2023-06-03 17:28 | NUR ---
SHIFT SUMMARY NO ACUTE CHANGES THIS SHIFT. CALL LIGHT WITHIN REACH AND PT ABLE TO MAKE NEEDS KNOWN.
[2023-06-03 19:58] VITALS: BP 121/84
[2023-06-04 03:07] VITALS: BP 127/82
[2023-06-04 04:58] LABS: Hematocrit 30.7 % (37.0-53.0); Hemoglobin 9.9 g/dL (13.5-17.5); Mean Corpuscular HGB Conc 32.2 g/dL (31.5-36.5); Mean Corpuscular Volume 87 fL (80-100); Mean Platelet Volume 9.2 fL (9.1-12.4); Platelet Count 318 K/mm3 (150-400); RDW Coefficient Variation 20.6 % (11.7-14.2); RDW Standard Deviation 65.8 fL (35.1-46.3); Red Blood Cell Count 3.53 M/mm3 (4.30-5.90)
[2023-06-04 05:17] LABS: International Normalized Ratio 1.2; Prothrombin Time Results 12.5 Sec (9.7-11.5)
[2023-06-04 05:43] LABS: Bun/Creatinine Ratio 31.6 (12.0-20.0); Calcium, Blood 8.5 mg/dL (8.5-10.1); Creatinine, Blood 0.47 mg/dL (0.60-1.20)
--- NOTE | 2023-06-04 07:23 | NUR ---
SHIFT SUMMARY: PT IS ADMITTED FOR SEPSIS AND IS A FULL CODE. IS ALERT AND ABLE TO MAKE NEEDS KNOWN. IS A 1P FOR MOST ADLs BUT HAS NOT WANTED MUCH HELP FROM STAFF THROUGH SHIFT. HAS REQUESTED PRN PAIN MANAGEMENT ABOUT EVERY 4 HOURS STATING 01/10. IV TO BI LAT ARMS ARE PATENT WITH DRESSING THAT ARE CDI. RIGHT FOREARM HAS HAD PROTONIX RUNNING @10ML/H THROUGH SHIFT. FOLLY IS PATENT AND PRODUCING CLEAR YELLOW URINE IN MODERATE AMOUNTS.
[2023-06-04 08:09] VITALS: BP 110/82
[2023-06-04 15:49] VITALS: BP 108/82
--- NOTE | 2023-06-04 17:26 | NUR ---
SHIFT SUMMARY: PT IS A 67 YEAR OLD MALE HERE FOR SEPSIS SECONDARY TO UTI; CHRONIC HERNANDEZ CATHETER. TREATED WITH IV ANTIOBIOTICS. HE RECEIVED A IRON TRANSFUSION TODAY WITHOUT DIFFICULTY AND ANTICIPATES DISCHARGE TOMORROW DEPENDING ON HOW HE IS FEELING. HE IS IN BED, CALL LIGHT WITHIN REACH, NO SIGNS OR SYMPTOMS OF DISTRESS. PLAN OF CARE ONGOING.
[2023-06-04 19:45] VITALS: BP 103/67
--- NOTE | 2023-06-05 04:36 | NUR ---
SHIFT SUMMARY. NO ACUTE CHANGES NOTED. PATIENT CALLS APPROPRIATELY. C/O OF BACK PAIN-CHRONIC BACK PAIN-MEDICATED PER EMAR. PATIENT IS PLEASANT W/CARE. PATIENT ANTICIPATING DISCHARGE TODAY. BED IS LOCKED IN THE LOWEST POSITION W/CALL LIGHT IN REACH. NO S/S OF DISTRESS NOTED AT THIS TIME.
[2023-06-05 04:40] VITALS: BP 119/90
[2023-06-05 05:51] LABS: Hematocrit 31.2 % (37.0-53.0); Hemoglobin 9.9 g/dL (13.5-17.5); Mean Corpuscular HGB 27.8 pg (26.0-34.0); Mean Corpuscular HGB Conc 31.7 g/dL (31.5-36.5); Mean Corpuscular Volume 88 fL (80-100); Mean Platelet Volume 9.1 fL (9.1-12.4); Platelet Count 343 K/mm3 (150-400); RDW Coefficient Variation 20.7 % (11.7-14.2); RDW Standard Deviation 66.4 fL (35.1-46.3); Red Blood Cell Count 3.56 M/mm3 (4.30-5.90)
[2023-06-05 06:32] LABS: International Normalized Ratio 1.88
[2023-06-05 07:27] VITALS: BP 138/87
[2023-06-05] MEDS ORDERED: JUVEN PACKET1 EAC3 PO (11:05)
--- NOTE | 2023-06-05 14:31 | NUR ---
DISCHARGE NOTE: DISCUSSED DISCHARGE WITH PATIENT AND FAXED MEDICATIONS TO OR PHARMACY. HE WAS PROVIDED A BED BATH, DRESSED, AND ASSISTED TO HIS PERSONAL WHEELCHAIR. HIS IV WAS REMOVED AND BELONGINGS WERE GATHERED. HIS RIDE ARRIVED AT THE [facility] AT 1350. PATIENT TAKEN DOWN BY STAFF TO [facility]. NO SIGNS OR SYMPTOMS OF DISTRESS DURING DISCHARGE.
== END 2023-06-05 13:55 | disposition home health service (06) | DRG 698 ==
LOC: ER 18:08 → ERHOLD 18:09 → PCU 05-29 10:13 → MEDS 05-29 14:58 → PCU 05-29 14:58 → MEDS 05-31 18:15 → ENPENDDIS 06-05 10:13 → MEDS 06-05 13:55
PROVIDERS: Emergency Medicine; Internal Medicine; ADMIT Internal Medicine
PROC: 0T9B70Z Drainage of Bladder with Drainage Device, Via Natural or Artificial Opening (ICD-10-PCS; principal; 2023-05-29)
PROC: 30233N1 Transfusion of Nonautologous Red Blood Cells into Peripheral Vein, Percutaneous Approach (ICD-10-PCS; 2023-05-29)
DX: T83.511A Infection and inflammatory reaction due to indwelling urethral catheter, initial encounter (principal); A41.9 Sepsis, unspecified organism; D62 Acute posthemorrhagic anemia; D68.32 Hemorrhagic disorder due to extrinsic circulating anticoagulants; K92.2 Gastrointestinal hemorrhage, unspecified; G82.20 Paraplegia, unspecified; E78.5 Hyperlipidemia, unspecified; M54.50 Low back pain, unspecified; G89.29 Other chronic pain; N39.0 Urinary tract infection, site not specified; J44.9 Chronic obstructive pulmonary disease, unspecified; N40.0 Benign prostatic hyperplasia without lower urinary tract symptoms; L89.891 Pressure ulcer of other site, stage 1; F17.210 Nicotine dependence, cigarettes, uncomplicated; I48.91 Unspecified atrial fibrillation; Z95.2 Presence of prosthetic heart valve; T45.515A Adverse effect of anticoagulants, initial encounter; Z79.891 Long term (current) use of opiate analgesic; Z79.01 Long term (current) use of anticoagulants; Z79.899 Other long term (current) drug therapy; Z98.890 Other specified postprocedural states; Z11.52 Encounter for screening for COVID-19; Z99.3 Dependence on wheelchair
CPT/HCPCS: 0241U; 36415; 36430; 51702; 71260; 80048; 80053; 80069; 81001; 82272; 82728; 83540; 83550; 83605; 83735; 84100; 84145; 84484; 85014; 85018; 85025; 85027; 85045; 85610; 86850; 86900; 86901; 86923; 87040; 87070; 87205; 93005; 93010; 94664; 94760; 96361; 96365; 96367; 96375; 96376; 97110; 97162; 99285-25; A9270; C9113; G0378; J0456; J0692; J0696; J0780; J1750; J2405; J3475; J3480; J7030; J7040; J7050; P9016; Q9967

== ENCOUNTER 2023-06-25 13:33 | Inpatient (IN) | payer OTHER ==
[~2023-06-25] VITALS: Ht 185.4 cm; Wt 57.5 kg
[~2023-06-25 13:33] MED LIST changes: +IRON18 MG; +JUVEN PACKET1 EAC3 PO; +NARCAN4 M1; +Vitamin C100 M1; +Voltaren100 GM
[2023-06-25 14:13] LABS: BASOPHILS ABSOLUTE AUTO 0.06 K/mm3 (0.00-0.23); BASOPHILS PERCENT AUTO 1 % (0-2); EOSINOPHILS ABSOLUTE AUTO 0.27 K/mm3 (0.00-0.68); EOSINOPHILS PERCENT AUTO 3 % (0-6); Hemoglobin 8.8 g/dL (13.5-17.5); IMMATURE GRAN ABSOLUTE AUTO 0.09 K/mm3 (0.00-0.10); IMMATURE GRAN PERCENT AUTO 1 % (0-1); LYMPHOCYTES ABSOLUTE AUTO 1.56 K/mm3 (0.84-5.20); LYMPHOCYTES PERCENT AUTO 15 % (21-46); MONOCYTES ABSOLUTE AUTO 0.65 K/mm3 (0.16-1.47); MONOCYTES PERCENT AUTO 6 % (4-13); Mean Corpuscular HGB 27.1 pg (26.0-34.0); Mean Corpuscular HGB Conc 30.3 g/dL (31.5-36.5); Mean Corpuscular Volume 89 fL (80-100); Mean Platelet Volume 8.7 fL (9.1-12.4); NEUTROPHILS ABSOLUTE AUTO 7.48 K/mm3 (1.96-9.15); NEUTROPHILS PERCENT AUTO 74 % (41-73); Platelet Count 325 K/mm3 (150-400); RDW Coefficient Variation 18.5 % (11.7-14.2); Red Blood Cell Count 3.25 M/mm3 (4.30-5.90); White Blood Cell Count 10.11 K/mm3 (4.00-11.30)
[2023-06-25 14:32] LABS: Prothrombin Time Results 39.5 Sec (9.7-11.5)
[2023-06-25 14:35] LABS: International Normalized Ratio 4.07
[2023-06-25 14:49] LABS: Albumin, Blood 2.3 g/dL (3.4-5.0); Albumin/Globulin Ratio 0.6 (0.8-1.8); Bilirubin, Total 0.2 mg/dL (0.1-1.0); Bun/Creatinine Ratio 37.9 (12.0-20.0); Calcium, Blood 7.8 mg/dL (8.5-10.1); Creatinine, Blood 0.5 mg/dL (0.60-1.20); Globulin, Blood 3.6 g/dL (2.2-4.0); Potassium, Blood 3.8 mmol/L (3.5-5.5); Total Protein, Blood 5.9 g/dL (6.4-8.2)
[2023-06-25] MEDS ORDERED: FLECAINIDE 50 MG PO (18:09)
[2023-06-25] MEDS ORDERED: GABA300 PO (18:10)
[2023-06-25] MEDS ORDERED: OXAYDO5 M1 PO (18:11)
[2023-06-25] MEDS ORDERED: TIOT18 INH (18:12)
[2023-06-25 18:48] VITALS: BP 136/88
[2023-06-25 19:22] LABS: International Normalized Ratio 1.75
[2023-06-25 19:32] LABS: Prothrombin Time Results 17.8 Sec (9.7-11.5)
[2023-06-25] MEDS ORDERED: Ventolin/Proventil INH (20:09)
[2023-06-25] MEDS ORDERED: ATENOLOL25 MG PO (20:10)
[2023-06-25] MEDS ORDERED: OXYC10TA19 PO (20:24)
[2023-06-25] MEDS ORDERED: FERSU300 PO (20:25)
[2023-06-25] MEDS ORDERED: SPIRIVA RESPIMAT4 G2 INH (20:25)
[2023-06-25] MEDS ORDERED: ARTHRITIS PAIN150 GM TOP (20:27)
[2023-06-26 02:08] VITALS: BP 113/78
--- NOTE | 2023-06-26 04:03 | NUR ---
SHIFT SUMMARY ADMITTED FOR ANEMIA/EPISTAXIS. FULL CODE. WE ARE MONITORING LABS. HE IS ON WARFARIN AT HOME. HE HAS A CHRONIC HERNANDEZ AND IS PARAPLEGIC. A RHINO ROCKET IN PLACE IN RIGHT NARE. HE IS RA. TELEMETRY: TACHY @ 106 BPM. HE IS ON BEDREST. 1 UNIT OF PRBC'S GIVEN IN ER. ON HEART HEALTHY DIET. HE IS A [facility] PATIENT. HX: ARTIFICIAL HEART VALVE, AFIB.
[2023-06-26 05:22] LABS: BASOPHILS ABSOLUTE AUTO 0.05 K/mm3 (0.00-0.23); BASOPHILS PERCENT AUTO 0 % (0-2); EOSINOPHILS ABSOLUTE AUTO 0.03 K/mm3 (0.00-0.68); EOSINOPHILS PERCENT AUTO 0 % (0-6); Hematocrit 30.7 % (37.0-53.0); Hemoglobin 9.7 g/dL (13.5-17.5); IMMATURE GRAN ABSOLUTE AUTO 0.15 K/mm3 (0.00-0.10); IMMATURE GRAN PERCENT AUTO 1 % (0-1); LYMPHOCYTES ABSOLUTE AUTO 1.84 K/mm3 (0.84-5.20); LYMPHOCYTES PERCENT AUTO 15 % (21-46); MONOCYTES ABSOLUTE AUTO 0.66 K/mm3 (0.16-1.47); MONOCYTES PERCENT AUTO 5 % (4-13); Mean Corpuscular HGB 27.2 pg (26.0-34.0); Mean Corpuscular HGB Conc 31.6 g/dL (31.5-36.5); Mean Corpuscular Volume 86 fL (80-100); NEUTROPHILS ABSOLUTE AUTO 9.44 K/mm3 (1.96-9.15); NEUTROPHILS PERCENT AUTO 78 % (41-73); Platelet Count 314 K/mm3 (150-400); RDW Coefficient Variation 18.5 % (11.7-14.2); RDW Standard Deviation 58.7 fL (35.1-46.3); Red Blood Cell Count 3.56 M/mm3 (4.30-5.90); White Blood Cell Count 12.17 K/mm3 (4.00-11.30)
[2023-06-26 05:29] LABS: International Normalized Ratio 1.14
[2023-06-26 05:52] LABS: Prothrombin Time Results 11.9 Sec (9.7-11.5)
[2023-06-26 07:06] LABS: Albumin, Blood 2.7 g/dL (3.4-5.0); Albumin/Globulin Ratio 0.8 (0.8-1.8); Bilirubin, Total 0.5 mg/dL (0.1-1.0); Bun/Creatinine Ratio 96.4 (12.0-20.0); Calcium, Blood 8.6 mg/dL (8.5-10.1); Creatinine, Blood 0.36 mg/dL (0.60-1.20); Globulin, Blood 3.6 g/dL (2.2-4.0); Total Protein, Blood 6.3 g/dL (6.4-8.2)
[2023-06-26 07:17] VITALS: BP 108/63
[2023-06-26 16:02] VITALS: BP 110/79
--- NOTE | 2023-06-26 17:12 | NUR ---
DAYSHIFT SUMMARY Patient alert & oriented x3, pleasant and cooperative. Patient reports feeling tired today, napped most of the afternoon. INR improved today, Started Warfarin & Heparin IV gtt. 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 Patient worked with PT/OT this am, therapy recommending home w/ HH. Chronic pierce in place, draining to gravity. Urine is roldan/pink tinged. Patient had poor PO intake this shift. Encouarging ensure and snacks. Vitals stable, Will continue plan of care.
[2023-06-26 20:42] VITALS: BP 121/75
[2023-06-27 02:29] VITALS: BP 119/79
--- NOTE | 2023-06-27 04:08 | NUR ---
SHIFT SUMMARY ADMITTED FOR ANEMIA/EPISTAXIS. FULL CODE. PLAN IS FOR DC HOME WITH HH WHEN STABLE FOR DC. WE ARE RUNNING A HEPARIN DRIP. RHINO ROCKET IN PLACE. TELEMETRY: NSR @ 92 BPM. CARDIAC DIET. A&O X4. CHRONIC HERNANDEZ IN PLACE. A&O X4. PARAPLEGIC. 1 UNIT OF PRBC'S GIVEN IN ER. [facility] PATIENT. HX: ARTIFICIAL HEART VALVE, AFIB. PAIN AND NAUSEA RX GIVEN THIS SHIFT.
[2023-06-27 06:10] LABS: BASOPHILS ABSOLUTE AUTO 0.06 K/mm3 (0.00-0.23); BASOPHILS PERCENT AUTO 1 % (0-2); EOSINOPHILS ABSOLUTE AUTO 0.09 K/mm3 (0.00-0.68); EOSINOPHILS PERCENT AUTO 1 % (0-6); Hematocrit 28.2 % (37.0-53.0); IMMATURE GRAN ABSOLUTE AUTO 0.07 K/mm3 (0.00-0.10); IMMATURE GRAN PERCENT AUTO 1 % (0-1); LYMPHOCYTES ABSOLUTE AUTO 1.47 K/mm3 (0.84-5.20); LYMPHOCYTES PERCENT AUTO 15 % (21-46); MONOCYTES PERCENT AUTO 8 % (4-13); Mean Corpuscular HGB 27.4 pg (26.0-34.0); Mean Corpuscular HGB Conc 31.9 g/dL (31.5-36.5); Mean Corpuscular Volume 86 fL (80-100); Mean Platelet Volume 9.4 fL (9.1-12.4); NEUTROPHILS ABSOLUTE AUTO 7.54 K/mm3 (1.96-9.15); NEUTROPHILS PERCENT AUTO 75 % (41-73); Platelet Count 320 K/mm3 (150-400); RDW Coefficient Variation 18.2 % (11.7-14.2); RDW Standard Deviation 57.1 fL (35.1-46.3); Red Blood Cell Count 3.29 M/mm3 (4.30-5.90); White Blood Cell Count 10.03 K/mm3 (4.00-11.30)
[2023-06-27 06:27] LABS: International Normalized Ratio 1.04; Prothrombin Time Results 10.9 Sec (9.7-11.5)
[2023-06-27 06:28] LABS: Calcium, Blood 8.6 mg/dL (8.5-10.1); Creatinine, Blood 0.42 mg/dL (0.60-1.20); Potassium, Blood 3.8 mmol/L (3.5-5.5)
[2023-06-27 07:36] VITALS: BP 109/73
[2023-06-27 13:15] LABS: Hematocrit 28.9 % (37.0-53.0); Hemoglobin 9.1 g/dL (13.5-17.5)
[2023-06-27 15:47] VITALS: BP 110/76
--- NOTE | 2023-06-27 17:18 | NUR ---
SHIFT SUMMARY PT AXO, PLEASANT AND COOPERATIVE WITH CARE, REPORTS FEELING IMPROVED FROM START OF SHIFT. PT MEDICATED PER EMAR X3 THIS SHIFT. ALSO MEDICATED FOR NAUSEA PER EMAR. ON TELE, SINUS TACH AT 109 AT START OF SHIFT. AT 1650, CLIENT EXECUTIVE NOTIFIED THIS NURSE THAT PT WAS IN TRIGEMINY FOR 6 MINUTES AT THAT POINT. PT WAS IN THE PROCESS OF REPOSITIONING AT THAT TIME. DENIES SYMPTOMS. DR WISEMAN NOTIFIED AT 1700, NO NEW ORDERS AT THAT TIME. PT ON HEPARIN GTT, INFUSING PER EMAR. TWO RATE CHANGES THIS SHIFT, VERIFIED WITH A SECOND NURSE, MEET HUMPHREY RN. PT HAS SACRAL ULCER, STAGE 2, PHOTO IN CHART. PT EDUCATED ON IMPORTANCE OF TURNING FREQUENTLY PT HAS BEEN REFUSING REPOSITIONING THROUGHOUT THE SHIFT. BED IN LOW POSITION, CALL LIGHT WITHIN REACH.
--- NOTE | 2023-06-27 18:43 | NUR ---
"Spiritual Care/Sabianist Consult | referred by. Dr. Patton Pt. is sitting upin bed and eating dinner, when he welcomes my visit. Pt. displayed hesitation in his welcome. Pt. verbaliezed that his was more spiritual than he was. With theraputic listening and a calming presence Pt. begins to engage in conversation, though his primary focus wason finishing dinner. Pt. 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
[2023-06-27 19:37] VITALS: BP 112/80
--- NOTE | 2023-06-28 03:23 | NUR ---
SHIFT SUMMARY: PT A&0 X 4, SLEPT MOST OF THE NIGHT. NO FURTHER NOSE BLEED NOTED. NO BLOODY SPUTUM OR COUGHING NOTED. HEPARIN DOSE WAS INCREASED BY PHARMACY TO 22.4ML/HR. PUMP DOSAGE ADJUSTED WITH SINDI STONE NSR AT 94. PT REQUESTING PAIN MEDS REPEATEDLY AT EXACTLY 4 HOURS FROM PREVIOUS DOSE. PT WAS REMINDED THAT PAIN MEDICATION IS NEEDED AND SHOULD BE ASKED FOR BASED ON PAIN LEVEL AND NOT WHAT TIME THE CLOCK SAYS. PT HAD CALLED ME 3 TIMES IN 10 MINUTES FOR PAIN MEDS AND THEN WAS RUDE TO ME WHEN HIS PAIN MEDICATION WAS GIVEN TO HIM AT 0031 INTEAD OF THE TIME WRITTEN ON THE BOARD BY PRIOR NURSE OF 2021. COMPUTER REPORTED LITHOGRAPHIC STRIPPER TIME OF 2027. PT ASKED ME "WHAT IS YOUR NAME BECAUSE I WILL BE DISCUSSING YOU NOT GIVING ME PAIN MEDS WITH MY DOCTOR." PT WAS INFORMED OF MY NAME AND TOLD THAT HE IS WELCOME TO DISCUSS HIS PAIN MANAGEMENT FURTHER WITH HIS PHYSICIAN TODAY. RHINO NOSE PLUG IN POSITION THROUGHOUT SHIFT. 06/28/23 CONOR PERRY RN
[2023-06-28 04:31] VITALS: BP 110/77
[2023-06-28 05:01] LABS: Hematocrit 26.6 % (37.0-53.0); Hemoglobin 8.5 g/dL (13.5-17.5)
[2023-06-28 05:12] LABS: Platelet Count 309 K/mm3 (150-400)
[2023-06-28 05:29] LABS: International Normalized Ratio 1.17; Prothrombin Time Results 12.2 Sec (9.7-11.5)
[2023-06-28 05:37] LABS: Bun/Creatinine Ratio 51.2 (12.0-20.0); Calcium, Blood 8.5 mg/dL (8.5-10.1); Creatinine, Blood 0.39 mg/dL (0.60-1.20); Potassium, Blood 3.7 mmol/L (3.5-5.5)
[2023-06-28 07:18] VITALS: BP 116/78
--- NOTE | 2023-06-28 13:22 | NUR ---
HEPARIN STOPPED AT THIS TIME PER DR WISEMAN ORDER. PHARMACY AWARE
[2023-06-28 15:40] VITALS: BP 113/81
--- NOTE | 2023-06-28 15:44 | NUR ---
RHINOROCKET REMOVED. instructed RN to remove rhinorocket. Rhinorocket located in patients' right nare, deflated ballon 25mL of air removed, removed rhinorocket. No bleeding observed after removing, patient denied pain or discomfort.
--- NOTE | 2023-06-28 17:31 | NUR ---
I SPOKE WITH BEDSIDE RN ABOUT JERAMIE. MET WITH HIM. HE REPORTED THAT HE WAS A BIT NERVOUS ABOUT HAVING THE RHINO ROCKET REMOVED AND THAT HE MIGHT START BLEEDING AGAIN. JERAMIE REPORTED THAT HE HAS CHRONIC BACK PAIN THAT HE TAKES MEDICATION AT HOME FOR. HE HAS SCHEDULED PAIN MEDICATION HERE, BUT FEELS LIKE HE IS STILL PAINFUL. HE SAID THAT WHEN HE HAD THIS BLEEDING FROM HIS NOSE THAT HE WAS NAUSEOUS AND SHORT BREATH. HE STATED THAT THESE SYMPTOMS HAD RESOLVED AT THIS POINT. HE RECIEVED BLOOD IN THE ER. A VISITOR ARRIVED WHILE WE WERE DISCUSSING CODE STATUS AND HE BECAME LESS INVOLVED WITH THE CONVERSATION. ENDED THE VISIT SO HE COULD TALK TO HIS VISITOR.
--- NOTE | 2023-06-28 18:03 | NUR ---
SHIFT SUMMARY PT AXO, PLEASANT AND COOPERATIVE WITH CARE THOUGH CAN BE IRRITABLE AT TIMES WITH STAFF. VSS. HEPARIN GTT DC'D THIS SHIFT PER DR WISEMAN. RHINO ROCKET REMOVED AND NO BLEEDING AT THIS TIME. IV PATENT AND SALINE LOCKED. MEDICATED FOR PAIN AND NAUSEA PER EMAR. PT REFUSING TURNING Q2. MEPILEX ON STAGE 2 SACRAL INJURY. PT EDUCATED ON IMPORTANCE OF FREQUENT REPOSITIONING. BED IN LOW POSITION, CALL LIGHT WITHIN REACH.
[2023-06-29 04:28] VITALS: BP 108/70
--- NOTE | 2023-06-29 05:01 | NUR ---
SHIFT SUMMARY NOC PT A/O X 4. IRRITABLE AND INPATIENT WITH CARE. PT HAD RHINO ROCKET REMOVED DURING DAY SHIFT, AND NO MORE EPISTAXIS TO NOTED SO FAR. DURING HS VS PT BEGAN TO DESATURATE TO 87%-89%, O2 4L/NC APPLIED AND RT ASSESSED PT. SPO2 INCREASED INTO LOW 90'S AND CONTINUOS BIOX INITIATED. DURING ROUNDING PT FOUND TO HAVE REMOVED O2, BUT SPO2 HAS MAINTAINED > 90% ON RA. ON TELE RUNNING SINUS TACH IN LOW 100'S, BUT THEN STAYED IN HIGH 70'S. HERNANDEZ IN PLACE THAT IS SCHEDULED TO BE CHANGED TODAY. PT HAS STAGE 2 PRESSURE ULCER ON COCCYX WITH MEPILEX DRESSING IN PLACE C/D/I. PT ALSO RECEIVING Q4H OXYICODONE FOR CHRONIC PAIN. PT IS CURRENTLY RESTING WITH BED IN LOWEST POSITION, AND CALL LIGHT WITHIN REACH.
[2023-06-29 05:24] LABS: BASOPHILS ABSOLUTE AUTO 0.07 K/mm3 (0.00-0.23); BASOPHILS PERCENT AUTO 1 % (0-2); EOSINOPHILS ABSOLUTE AUTO 0.17 K/mm3 (0.00-0.68); EOSINOPHILS PERCENT AUTO 2 % (0-6); Hematocrit 27.6 % (37.0-53.0); Hemoglobin 8.7 g/dL (13.5-17.5); IMMATURE GRAN ABSOLUTE AUTO 0.06 K/mm3 (0.00-0.10); IMMATURE GRAN PERCENT AUTO 1 % (0-1); LYMPHOCYTES PERCENT AUTO 15 % (21-46); MONOCYTES ABSOLUTE AUTO 0.95 K/mm3 (0.16-1.47); MONOCYTES PERCENT AUTO 11 % (4-13); Mean Corpuscular HGB 27.6 pg (26.0-34.0); Mean Corpuscular HGB Conc 31.5 g/dL (31.5-36.5); Mean Corpuscular Volume 88 fL (80-100); Mean Platelet Volume 9.2 fL (9.1-12.4); NEUTROPHILS ABSOLUTE AUTO 5.87 K/mm3 (1.96-9.15); NEUTROPHILS PERCENT AUTO 70 % (41-73); Platelet Count 324 K/mm3 (150-400); RDW Coefficient Variation 19.1 % (11.7-14.2); RDW Standard Deviation 56.6 fL (35.1-46.3); Red Blood Cell Count 3.15 M/mm3 (4.30-5.90); White Blood Cell Count 8.42 K/mm3 (4.00-11.30)
[2023-06-29 05:39] LABS: International Normalized Ratio 1.63; Prothrombin Time Results 16.6 Sec (9.7-11.5)
[2023-06-29 05:55] LABS: Bun/Creatinine Ratio 33.4 (12.0-20.0); Calcium, Blood 8.8 mg/dL (8.5-10.1); Creatinine, Blood 0.54 mg/dL (0.60-1.20); Potassium, Blood 4.1 mmol/L (3.5-5.5)
[2023-06-29 07:29] VITALS: BP 107/77
[2023-06-29 15:31] VITALS: BP 105/74
[2023-06-29 16:14] LABS: Anti-Xa UFH, PHA Monitoring 0.2 IU/mL
--- NOTE | 2023-06-29 19:36 | NUR ---
SUMMARY- PT A/O X3. BEDREST, ASSIST WITH TURNS, REFUSES TO BE TURNED AT TIMES AND INSISTS ON SITTING STRAIGHT UPRIGHT AT CLOSE TO 90 DEGREES. CHRONIC INDWELLING HERNANDEZ CHANGED TODAY AT 1600. HAD BEEN LEAKING, ATTENDS SOAKED- SKIN HAD BEEN BROKEN DOWN UPON ADMIT AND PHOTOS TAKEN 06/27, APPEARS TO BE WORSTENING AND SKIN APPEARS MASCERATED, STAGE 2-3 BREAKDOWN. REDRESSED MEPILEX AFTER CLEANSING AND APPLYING SKIN BARRIER. ENC PT SIDE TO SIDS ESPECIALLY WHEN RN ASSESED THE SITUATION- NEW PHOTOS TAKEN. PT HAD HARD STOOL STARTING TO COME OUT, RN ASSESSED DIG ASSIST PT UNABLE TO PUSH AND WAS IMPACTED, REMOVED XLG HARD BROWN STOOL, NO BLEEDING. PT CONT ON HEPARIN GTT, AND COUMADIN GIVEN THIS PM AFTER CONFIRMING WITH PHARMACIST. PT HAD NO BLEEDING FROM NOSE TODAY, HH STABLE. VSS. PT WAS ON ROOM AIR ALL DAY UNTIL 1700, AFTER DRESSING CHANGES AND MOVEMENT, PT'S SATS DROPPED TO 82%, PLACED 3L NC, SATS BACK UP TO 93%. PT TOLERATING FOOD AND FLUID. BACK PAIN IS CONTROLLED WITH SCHEDULED OXY. WILL REPORT ALL TO NOC RN
[2023-06-29 20:00] VITALS: BP 117/80
[2023-06-30 04:04] VITALS: BP 108/71
--- NOTE | 2023-06-30 04:33 | NUR ---
SHIFT SUMMARY NOC A/O X 4. HAS BEEN PLEASANT AND COOPERATIVE WITH CARE TONIGHT. HEPARIN DRIP INFUSING. HAS ALLOWED Q2H REPOSITIONING AND CHECKING BRIEF FOR BM AND ENSURE HERNANDEZ NOT LEAKING OR KINKED. PT RECEIVING Q4H SCHEDULED OXYCODONE FOR CHRONIC BACK PAIN. HERNANDEZ WAS REPLACE YESTERDAY SCHEDULED. PT IN MORE RECEPTIVE AND POSITIVE MOOD TONIGHT. PT SPO2 DESATURATED AGAIN AFTER SHIFT CHANGE AND PT O2 DEMAND INCREASED FROM 3L/NC TO 8L/NC TO MAINTAIN SPO2 >90%. THROUGHOUT SHIFT IT HAS BEEN WEANED DOWN TO 4L/NC. PT ON TELE RUNNING SINUS RHYTHM WITH 1DHB @ 80'S TO 90'S. PT IS CURRENTLY RESTING WITH BED IN LOWEST POSITION, AND CALL LIGHT WITHIN REACH.
[2023-06-30 05:12] LABS: Hematocrit 26.4 % (37.0-53.0); Hemoglobin 8.4 g/dL (13.5-17.5); Mean Platelet Volume 9.4 fL (9.1-12.4); Platelet Count 330 K/mm3 (150-400)
[2023-06-30 05:25] LABS: Anti-Xa UFH, PHA Monitoring 0.34 IU/mL; International Normalized Ratio 2.15; Prothrombin Time Results 21.6 Sec (9.7-11.5)
[2023-06-30 05:39] LABS: Bun/Creatinine Ratio 44.5 (12.0-20.0); Calcium, Blood 8.6 mg/dL (8.5-10.1); Creatinine, Blood 0.43 mg/dL (0.60-1.20); Potassium, Blood 3.9 mmol/L (3.5-5.5)
--- NOTE | 2023-06-30 06:29 | NUR ---
NOTIFIED BY PHARMACIST KAHLIL THAT PT INR 2.15 AND CURRENTLY WITHIN TARGET RANGE OF 2.0-3.0 FOR MECHANICAL VALVE THERAPEUTIC RANGE. DOSE AND RATE REMAIN SAME ON NEW BAG STARTED AND PHARMACIST GAVE INSTRUCTIONS TO PASS ON TO DAY RN INFORMATION TO DAY MD TO DECIDE WHETHER TO STOP HEPARIN INFUSION.
[2023-06-30 07:25] VITALS: BP 96/58
[2023-06-30 12:43] LABS: Hematocrit 27.9 % (37.0-53.0); Hemoglobin 8.8 g/dL (13.5-17.5)
[2023-06-30 15:22] VITALS: BP 101/68
--- NOTE | 2023-06-30 20:01 | NUR ---
SUMMARY- PT A/O X4, WITHDRAWN. HX PARAPLEGIA ,DEPENDANT IN CARE. PT ON 4L O2/NC. LUNGS DIM MID TO LOWER WITH SCATTERED RHONCHI. NO NOTABLE WHEEZE. HAS WEAK PRODUCTIVE COUGH, CLEARING LG AMOUNTS STRINGY RUST SPUTUM, PLACES IN KLEENEX. CALLED THIS AM [address] COATES OF SPUTUM AND O2 DEMAND. LATER IN THE DAY CAT SCAN CHEST ORERED. STARTED ON IV ABX FOR SUSPECTED PNEUMONIA. PT HAS HERNANDEZ, DRAINING MED YELLOW. NO BM TODAY. NO BLEEDING NOTED FROM ANY SOURSE. HH STABLE. HEPARIN GTT STOPPED THIS AM 0740 PER PHARMACY DIRECTION. PT ON DAILY COUMADIN. TOLERATING FOOD AND FLUIDS. PAIN IN R SHOULDER, USING HEAT PAD WHICH IS HELPFUL. MEPILEX TO SKIN BREAKDOWN CHANGED 1330, PLACED EGG CRATE ON THE BED TO PREVENT FURTHER BREAKDOWN. STRONGLY ENC/ASSIST PT IN POSITION CHANGES, BUT FREQ INSISTS ON SITTING UP AND NOT MOVING. TELE SR 1ST DEGREE AVB, PVC/PAC. BACK PAIN MANAGED WITH SCHEDUELD OXYCODONE 10MG, PT STATES PAIN NEVER GOES BELOW A 7 AND IS IN CONSTANT PAIN. REPORTED TO CAT NOC RN
[2023-06-30 20:08] VITALS: BP 105/64
[2023-07-01 03:38] VITALS: BP 101/72
--- NOTE | 2023-07-01 04:12 | NUR ---
SHIFT SUMMARY PT A&OX4 AND ANSWERS QUESTIONS APPROPRIATELY. PT MEDICATED PER EMAR FOR PAIN AND RECEIVED SCHEDULED MEDICATIONS. PT STILL COMPLAINS OF 6-7/10 BACK PAIN. NONPHARMACOLOGICAL INTERVENTIONS OFFERED. PT RECEIVED IV ANTIBIOTICS THROUGHOUT SHIFT. PRN BOWEL MEDS GIVEN. PT WAS RECEPTIVE, COOPERATIVE, AND PLEASANT DURING CARE. NO ACUTE EVENTS DURING SHIFT. PT VSS. PT LEFT IN A POSITION OF SAFETY WITH FALL PRECAUTIONS IN PLACE AND CALL LIGHT IN REACH.
[2023-07-01 05:41] LABS: BASOPHILS ABSOLUTE AUTO 0.03 K/mm3 (0.00-0.23); BASOPHILS PERCENT AUTO 0 % (0-2); EOSINOPHILS ABSOLUTE AUTO 0.25 K/mm3 (0.00-0.68); EOSINOPHILS PERCENT AUTO 3 % (0-6); Hematocrit 24.9 % (37.0-53.0); Hemoglobin 7.8 g/dL (13.5-17.5); IMMATURE GRAN ABSOLUTE AUTO 0.05 K/mm3 (0.00-0.10); IMMATURE GRAN PERCENT AUTO 1 % (0-1); LYMPHOCYTES ABSOLUTE AUTO 0.96 K/mm3 (0.84-5.20); LYMPHOCYTES PERCENT AUTO 11 % (21-46); MONOCYTES ABSOLUTE AUTO 0.94 K/mm3 (0.16-1.47); MONOCYTES PERCENT AUTO 11 % (4-13); Mean Corpuscular HGB 27.5 pg (26.0-34.0); Mean Corpuscular HGB Conc 31.3 g/dL (31.5-36.5); Mean Corpuscular Volume 88 fL (80-100); Mean Platelet Volume 9.2 fL (9.1-12.4); NEUTROPHILS PERCENT AUTO 74 % (41-73); Platelet Count 318 K/mm3 (150-400); RDW Coefficient Variation 18.6 % (11.7-14.2); RDW Standard Deviation 58.2 fL (35.1-46.3); Red Blood Cell Count 2.84 M/mm3 (4.30-5.90); White Blood Cell Count 8.53 K/mm3 (4.00-11.30)
[2023-07-01 05:56] LABS: International Normalized Ratio 2.63; Prothrombin Time Results 26.1 Sec (9.7-11.5)
[2023-07-01 06:28] LABS: Bun/Creatinine Ratio 43.8 (12.0-20.0); Calcium, Blood 8.4 mg/dL (8.5-10.1); Creatinine, Blood 0.37 mg/dL (0.60-1.20); Potassium, Blood 3.7 mmol/L (3.5-5.5)
[2023-07-01 08:05] VITALS: BP 107/72
[2023-07-01 11:23] LABS: Hematocrit 24.8 % (37.0-53.0); Hemoglobin 7.8 g/dL (13.5-17.5)
[2023-07-01 14:34] LABS: Hematocrit 26.3 % (37.0-53.0); Hemoglobin 8.1 g/dL (13.5-17.5)
--- NOTE | 2023-07-01 15:38 | NUR ---
SHIFT SUMMARY PT RESTING QUIETLY AT START OF SHIFT. WOKE EASILY FOR SHIFT REPORT. MEDICATED FOR C/O PAIN PER EMAR. UP TO CHAIR AT BS WITH THERAPY. SLIDE TX BACK TO BED. PT IS WEAK AND W/C AT BASELINE. POSSIBLE D/C TODAY IF H/H REMAINS STABLE. PER SPEECH THERAPY, MBS ORDERED FOR TOMORROW IF PT STILL HERE, OTHERWISE PT ABLE TO COMPLETE OUTPT. DIET REMAINS UNCHANGED AT THIS TIME. DENIED FURTHER NEEDS. REQUESTED TO TAKE A NAP AFTER LUNCH. CALL LT IN REACH.
[2023-07-01 18:58] VITALS: BP 112/59
[2023-07-01 20:25] LABS: Hematocrit 24.9 % (37.0-53.0); Hemoglobin 7.8 g/dL (13.5-17.5)
--- NOTE | 2023-07-02 03:54 | NUR ---
SHIFT SUMMARY ADMITTED FOR ACUTE ON CHRONIC ANEMIA. FULL CODE. PLAN IS FOR DC HOME. IV ANTIB RX ARE SCHEDULED. IV IRON IS SCHEDULED. ON CARDIAC DIET. TELEMETRY: NSR @ 95 BPM. 2 LPM O2, ON RA AT HOME. HE IS A PARAPLEGIC. HE USES A SLIDER BOARD TO HIS WHEELCHAIR FOR TRANSFERS. HE IS A [facility] PATIENT. HE HAS A MECHANICAL HEART VALVE, HE IS ON WARFARIN. HE HAS A CHRONIC HERNANDEZ IN PLACE. POSSIBLE ASPIRATION PNEUMONIA.
[2023-07-02 04:47] VITALS: BP 94/66
[2023-07-02 07:21] VITALS: BP 115/83
[2023-07-02 07:28] LABS: BASOPHILS ABSOLUTE AUTO 0.04 K/mm3 (0.00-0.23); BASOPHILS PERCENT AUTO 1 % (0-2); EOSINOPHILS ABSOLUTE AUTO 0.31 K/mm3 (0.00-0.68); EOSINOPHILS PERCENT AUTO 4 % (0-6); Hematocrit 25.2 % (37.0-53.0); Hemoglobin 7.7 g/dL (13.5-17.5); IMMATURE GRAN ABSOLUTE AUTO 0.03 K/mm3 (0.00-0.10); IMMATURE GRAN PERCENT AUTO 0 % (0-1); LYMPHOCYTES ABSOLUTE AUTO 0.94 K/mm3 (0.84-5.20); LYMPHOCYTES PERCENT AUTO 13 % (21-46); MONOCYTES ABSOLUTE AUTO 0.87 K/mm3 (0.16-1.47); MONOCYTES PERCENT AUTO 12 % (4-13); Mean Corpuscular HGB 27.3 pg (26.0-34.0); Mean Corpuscular HGB Conc 30.6 g/dL (31.5-36.5); Mean Corpuscular Volume 89 fL (80-100); Mean Platelet Volume 8.8 fL (9.1-12.4); NEUTROPHILS ABSOLUTE AUTO 4.99 K/mm3 (1.96-9.15); NEUTROPHILS PERCENT AUTO 70 % (41-73); Platelet Count 340 K/mm3 (150-400); RDW Coefficient Variation 18.2 % (11.7-14.2); RDW Standard Deviation 58.7 fL (35.1-46.3); Red Blood Cell Count 2.82 M/mm3 (4.30-5.90); White Blood Cell Count 7.18 K/mm3 (4.00-11.30)
[2023-07-02 07:41] LABS: International Normalized Ratio 2.53; Prothrombin Time Results 25.2 Sec (9.7-11.5)
[2023-07-02 07:46] LABS: Albumin, Blood 2.5 g/dL (3.4-5.0); Albumin/Globulin Ratio 0.7 (0.8-1.8); Bilirubin, Total 0.3 mg/dL (0.1-1.0); Bun/Creatinine Ratio 27.6 (12.0-20.0); Calcium, Blood 8.4 mg/dL (8.5-10.1); Creatinine, Blood 0.4 mg/dL (0.60-1.20); Globulin, Blood 3.7 g/dL (2.2-4.0); Potassium, Blood 3.9 mmol/L (3.5-5.5); Total Protein, Blood 6.2 g/dL (6.4-8.2)
[2023-07-02 15:36] VITALS: BP 107/71
[2023-07-02] MEDS ORDERED: IPRAT-ALBUT 0.5-3 ML INH (16:16)
[2023-07-02] MEDS ORDERED: Promod946 ML PO (16:17)
[2023-07-02] MEDS ORDERED: VISBIOME 112.51 EACH PO (16:17)
[2023-07-02] MEDS ORDERED: AMOCLA875 PO (16:30)
--- NOTE | 2023-07-02 17:39 | NUR ---
DISCHARGE NOTE: DISCUSSED DISCHARGE WITH PATIENT AND ANSWERED HIS QUESTIONS/CONCERNS. PATIENT VOICED ACKNOWLEDGEMENT OF DISCHARGE PLAN. HIS IV AND TELEMETRY WERE REMOVED AND TELE BOX RETURNED. HIS BELONGINGS WERE COLLECTED AND HIS PORTAL OXYGEN TANK WAS APPLIED TO PATIEN. HE WAS WHEELED DOWN IN HIS PERSONAL WHEELCHAIR BY STAFF. NO SIGNS OR SYMPTOMS OF DISTRESS DURING DISCHARGE.
== END 2023-07-02 17:33 | disposition home health service (06) | DRG 811 ==
LOC: ER 13:33 → MEDS 17:39
PROVIDERS: Family Medicine; Student in an Organized Health Care Education/Training Program; ADMIT Internal Medicine
PROC: 30233N1 Transfusion of Nonautologous Red Blood Cells into Peripheral Vein, Percutaneous Approach (ICD-10-PCS; principal; 2023-06-25)
DX: D62 Acute posthemorrhagic anemia (principal); J69.0 Pneumonitis due to inhalation of food and vomit; R64 Cachexia; R04.2 Hemoptysis; J44.0 Chronic obstructive pulmonary disease with (acute) lower respiratory infection; G82.20 Paraplegia, unspecified; R04.0 Epistaxis; E78.5 Hyperlipidemia, unspecified; I10 Essential (primary) hypertension; I48.0 Paroxysmal atrial fibrillation; R91.1 Solitary pulmonary nodule; N40.0 Benign prostatic hyperplasia without lower urinary tract symptoms; M54.50 Low back pain, unspecified; G89.29 Other chronic pain; R79.1 Abnormal coagulation profile; I95.9 Hypotension, unspecified; M54.2 Cervicalgia; L89.92 Pressure ulcer of unspecified site, stage 2; Z68.21 Body mass index [BMI] 21.0-21.9, adult; Z95.2 Presence of prosthetic heart valve; Z79.01 Long term (current) use of anticoagulants; Z98.890 Other specified postprocedural states; Z79.899 Other long term (current) drug therapy; Z87.891 Personal history of nicotine dependence; Z79.891 Long term (current) use of opiate analgesic; Z79.51 Long term (current) use of inhaled steroids
CPT/HCPCS: 30903; 36415; 36430; 71260; 74230; 80048; 80053; 85014; 85018; 85025; 85049; 85520; 85610; 85730; 92610; 92611; 94640; 94664; 94760; 94761; 94762; 96365; 96375; 97110; 97161; 97165; 97530; 99284-25; A9270; J0295; J1644; J2405; J2916; J3430; J7030; J7050; P9016; Q9967

== ENCOUNTER 2023-12-16 18:55 | Emergency (ER) | payer OTHER ==
[~2023-12-16] VITALS: Ht 167.6 cm; Wt 83.9 kg
[~2023-12-16 18:55] MED LIST changes: +ACET325 PO; +ARTHRITIS PAIN150 GM TOP; +ATEN25 PO; +B-1100 M1 PO; +CEPH500 PO; +CYCL10 PO; +Coumadin5 MG; +DOCUZEN 8.6-501 EACH PO; +FERSU300 PO; +FLECAINIDE 50 MG PO; +GABA300 PO; +GUAI600T33 PO; +IPRAT-ALBUT 0.5-3 ML INH; +OXAYDO5 M1 PO; +OXYC10TA19 PO; +PRAV20 PO; +PSYSENPA PO; +Promod946 ML PO; +SPIRIVA RESPIMAT4 G2 INH; +VISBIOME 112.51 EACH PO; +Ventolin/Proventil INH; +Ventolin5 MG/1 ML INH
[2023-12-16 20:39] LABS: BASOPHILS ABSOLUTE AUTO 0.04 K/mm3 (0.00-0.23); BASOPHILS PERCENT AUTO 1 % (0-2); EOSINOPHILS ABSOLUTE AUTO 0.14 K/mm3 (0.00-0.68); EOSINOPHILS PERCENT AUTO 2 % (0-6); Hematocrit 38.4 % (37.0-53.0); Hemoglobin 12.2 g/dL (13.5-17.5); IMMATURE GRAN ABSOLUTE AUTO 0.02 K/mm3 (0.00-0.10); IMMATURE GRAN PERCENT AUTO 0 % (0-1); LYMPHOCYTES ABSOLUTE AUTO 0.82 K/mm3 (0.84-5.20); LYMPHOCYTES PERCENT AUTO 13 % (21-46); MONOCYTES PERCENT AUTO 8 % (4-13); Mean Corpuscular HGB 24.6 pg (26.0-34.0); Mean Corpuscular HGB Conc 31.8 g/dL (31.5-36.5); Mean Corpuscular Volume 78 fL (80-100); Mean Platelet Volume 8.4 fL (9.1-12.4); NEUTROPHILS ABSOLUTE AUTO 4.91 K/mm3 (1.96-9.15); NEUTROPHILS PERCENT AUTO 76 % (41-73); Platelet Count 338 K/mm3 (150-400); RDW Coefficient Variation 23.5 % (11.7-14.2); RDW Standard Deviation 65.7 fL (35.1-46.3); Red Blood Cell Count 4.95 M/mm3 (4.30-5.90); White Blood Cell Count 6.43 K/mm3 (4.00-11.30)
[2023-12-16 21:00] LABS: Albumin, Blood 3.2 g/dL (3.4-5.0); Albumin/Globulin Ratio 0.7 (0.8-1.8); Bilirubin, Total 0.5 mg/dL (0.1-1.0); Bun/Creatinine Ratio 32.5 (12.0-20.0); Calcium, Blood 8.9 mg/dL (8.5-10.1); Creatinine, Blood 0.43 mg/dL (0.60-1.20); Globulin, Blood 4.8 g/dL (2.2-4.0); Potassium, Blood 3.8 mmol/L (3.5-5.5)
[2023-12-16] MEDS ORDERED: NS 1,000 ML IV SCH (22:50)
[2023-12-17] LABS: Source, Urine Foley catheter
[2023-12-17] MEDS ORDERED: CEFP200 PO (00:10)
[2023-12-17 00:11] LABS: Bilirubin, Urine Neg (Neg); Blood, Urine 5+ (Neg); Glucose Qualitative, Urine Neg (Neg); Ketones, Urine 3+ (Neg); Leukocyte Esterase, Urine 3+ (Neg); Nitrite, Urine Pos (Neg); Protein, Urine 2+ (Neg); Urobilinogen, Urine NORM (Normal)
[2023-12-17 00:34] LABS: Appearance, Urine Hazy (Clear); Color, Urine Yellow (P-Yellow)
[2023-12-17 00:35] LABS: Bacteria Many /hpf; Squamous Epithelial Cells Rare /hpf (Few); White Blood Cells, Urine TNTC /hpf (0-5)
[2023-12-17 00:43] VITALS: BP 138/98
== END 2023-12-17 00:43 | disposition home or self-care (01) ==
LOC: ER 18:55
PROVIDERS: Student in an Organized Health Care Education/Training Program
DX: N39.0 Urinary tract infection, site not specified (principal); R53.83 Other fatigue; R53.81 Other malaise; J44.9 Chronic obstructive pulmonary disease, unspecified; I10 Essential (primary) hypertension; I48.0 Paroxysmal atrial fibrillation; F17.210 Nicotine dependence, cigarettes, uncomplicated; Z96.0 Presence of urogenital implants; Z86.69 Personal history of other diseases of the nervous system and sense organs; Z79.01 Long term (current) use of anticoagulants; Z79.899 Other long term (current) drug therapy
CPT/HCPCS: 51702; 80053; 81001; 84145; 85025; 87077; 87086; 87186; 99283-25

== ENCOUNTER 2024-02-14 01:17 | Day surgery (SDC) | payer OTHER ==
[~2024-02-14 01:17] MED LIST changes: +CEFP200 PO
[2024-02-14 15:10] VITALS: BP 135/86
== END 2024-02-14 17:22 | disposition home or self-care (01) ==
LOC: ATC 01:17
DX: J15.5 Pneumonia due to Escherichia coli (principal); I48.0 Paroxysmal atrial fibrillation; J44.9 Chronic obstructive pulmonary disease, unspecified; E78.5 Hyperlipidemia, unspecified; I10 Essential (primary) hypertension; F17.210 Nicotine dependence, cigarettes, uncomplicated; Z79.899 Other long term (current) drug therapy
CPT/HCPCS: 36569; 71045; C1751